=== PATIENT | male | born 1965 | race Caucasian/White ===

== ENCOUNTER → 2016-07-28 | Outpatient (CLI) | payer OTHER ==
[~2016-07-28] MED LIST: AMLO-114 PO; ASPI325T45 PO; ATOR-24 PO; FLUC100T4 PO; FURO-85 PO; HYG/25 PO; LEVO1TAB34 PO; LEVO500T19 PO; LISI-725 PO; METF1000 PO; METR-162 PO; MULT-506 PO; POTA1CAP2 PO; [UNRECOGNIZED DRUG - CODE] PO
--- NOTE | 2016-07-28 13:34 | DIAGNOSTIC IMAGING REPORT ---
LEFT FIRST TOE 3 VIEWS CLINICAL HISTORY: Osteomyelitis. FINDINGS: 3 views of the left first toe are correlated with radiograph of left foot dated 06/21/2016. The skeletal structures are osteopenic. There is extensive destructive change involving the first toe. There is fracture through the proximal shaft of the first proximal phalanx. There is fragmentation with extensive bony erosion and distracted fragments seen involving the distal shaft and head of the first proximal phalanx. Periostitis is seen along the shaft of the first proximal phalanx. Foci of bony erosion and lucency are also identified within the first distal phalanx. The first metatarsal appears spared. Arthritic change is noted the first metatarsophalangeal joint. Soft tissue edema is seen throughout the first toe and the imaged lateral forefoot. IMPRESSION: 1. Extensive destructive change typical in appearance for osteomyelitis involving the left first toe as detailed above. This represents a significant change from the 06/21/2016 examination. 2. There is fracture through the base of the first proximal phalanx. 3. Overlying soft tissue edema is consistent with cellulitis. Electronically signed by: José Miguel Kennedy M.D. 07/28/2016 1:32 PM Dictated Date/Time: 07/28/2016 1:29 PM
== END | disposition home or self-care (01) ==
LOC: C.RDSM 08:00
PROVIDERS: ATTEND Physical Medicine & Rehabilitation Sports Medicine
DX: M86.9 Osteomyelitis, unspecified (principal); R93.7 Abnormal findings on diagnostic imaging of other parts of musculoskeletal system; S92.412A Displaced fracture of proximal phalanx of left great toe, initial encounter for closed fracture; X58.XXXA Exposure to other specified factors, initial encounter; M79.9 Soft tissue disorder, unspecified

== ENCOUNTER → 2016-07-28 | Outpatient (CLI) | payer OTHER ==
[2016-07-28 15:36] LABS: HEMATOCRIT 37.2 % (42-52); MEAN CELL VOLUME 89.6 fL (80-100); MEAN CORPUSCULAR HEMOGLOBIN 30.6 pg (25-34); MEAN CORPUSCULAR HGB CONC 34.1 g/dl (32-36); MEAN PLATELET VOLUME 10.2 fL (7.4-10.4); PLATELET COUNT 212 K/uL (130-400); RED BLOOD COUNT 4.15 M/uL (4.7-6.1); WHITE BLOOD COUNT 7.78 K/uL (4.8-10.8)
[2016-07-28 16:14] LABS: BLOOD UREA NITROGEN 56 mg/dl (7-18); BUN/CREATININE RATIO 24.5 (10-20); GLUCOSE 97 mg/dl (70-99)
[2016-07-28 16:15] LABS: CALCIUM 9.5 mg/dl (8.5-10.1); CARBON DIOXIDE 21 mmol/L (21-32); CHLORIDE 109 mmol/L (98-107); POTASSIUM 4.9 mmol/L (3.5-5.1); SODIUM 141 mmol/L (136-145)
== END | disposition home or self-care (01) ==
LOC: C.CPL 14:46
PROVIDERS: ATTEND Physical Medicine & Rehabilitation Sports Medicine
DX: Z01.818 Encounter for other preprocedural examination (principal); M86.9 Osteomyelitis, unspecified

== ENCOUNTER → 2016-08-04 | Day surgery (SDC) | payer OTHER ==
[2016-07-28 11:00] VITALS: Ht 170.2 cm; Wt 127.3 kg
--- NOTE | 2016-08-01 09:26 | PAT Medication Instructions ---
Service Date Aug 01, 2016. Current Home Medication List Amlodipine (Norvasc), 10 MG PO QAM Aspirin (Aspirin), 325 MG PO QAM Atorvastatin (Lipitor), 40 MG PO QAM Chlorthalidone (Hygroton), 25 MG PO QAM Fluconazole (Diflucan), 100 MG PO QAM Furosemide (Lasix), 20 MG PO QAM Levofloxacin (Levaquin), 1 TAB PO QAM Lisinopril (Zestril), 20 MG PO QAM Metformin Hcl (Glucophage), 1,000 MG PO BID Metronidazole (Flagyl), 500 MG PO BID Multivitamin (Multivitamin), 1 TAB PO HS Potassium Chloride (Potassium Chloride Er), 10 MEQ PO QAM PRN for LEG CRAMPS Medication Instructions For Your Scheduled Surgery - To stop as of 08/02/16 per surgeon's instructions: Aspirin (Aspirin), 325 MG PO QAM - Hold the following medications 48 hours prior to surgery: Metformin Hcl (Glucophage), 1,000 MG PO BID - Hold the following medications the morning of surgery: Furosemide (Lasix), 20 MG PO QAM Lisinopril (Zestril), 20 MG PO QAM Potassium Chloride (Potassium Chloride Er), 10 MEQ PO QAM PRN for LEG CRAMPS Chlorthalidone (Hygroton), 25 MG PO QAM - Take the following medications the morning of surgery with a sip of water OTHERWISE NOTHING TO EAT OR DRINK AFTER MIDNIGHT: Amlodipine (Norvasc), 10 MG PO QAM Metronidazole (Flagyl), 500 MG PO BID Fluconazole (Diflucan), 100 MG PO QAM Levofloxacin (Levaquin), 1 TAB PO QAM Atorvastatin (Lipitor), 40 MG PO QAM - Take the following medications as scheduled the night before surgery: Multivitamin (Multivitamin), 1 TAB PO HS Metronidazole (Flagyl), 500 MG PO BID If you have any questions please call us at [phone] (Sabina Briones PA-C ) or [phone] or [phone]
[~2016-08-04] VITALS: Ht 170.2 cm; Wt 127.3 kg
[~2016-08-04] MED LIST changes: +ATROPINE SULFATE 0.1 MG/ML 5ML SYR IV PRN; +BUPIVACAINE 0.5 % 5 MG/1 ML MPF 30ML VIAL ONE; +CLINDAMYCIN PHOS 150 MG/ML 2 ML VIAL IV SCH; +EpHEDrine SULFATE INJ 50 MG/ML AMP IV PRN; +FENTANYL CITRATE INJ 50 MCG/1 ML 2 ML VIAL ONE; +LACTATED RINGER'S 1000ML 1,000 ML IV SCH; -LEVO1TAB34 PO; +LIDOCAINE HCL 2% 2 ML VIAL (20MG/ML) ONE; +LIDOCAINE HCL 2% LOCAL 20 ML VIAL ONE; +MIDAZOLAM HCL 1 MG/ML 2ML VIAL ONE; +ONDANSETRON INJ 2 MG/ML 2 ML VIAL IV PRN; +POVIDONE-IODINE OP SOLN 30 ML BTL ONE; +PROPOFOL IV EMULSION 10 MG/ML 20 ML VIAL IV ONE; +SODIUM CHLORIDE 0.9% 1000ML 1,000 ML IV SCH; -[UNRECOGNIZED DRUG - CODE] PO
--- NOTE | 2016-08-04 09:13 | History & Physical Bridge Note ---
H&P Re-Evaluation Bridge Note: I have examined the patient, reviewed the History & Physical and in the interval since the performance of the History & Physical I have noted the following changes of clinical significance: No changes noted
--- NOTE | 2016-08-04 09:15 | Discharge Instructions ---
Discharge Instructions Visit Reason for Visit: Left Great Toe Ulcer/Osteomyelitis Discharge Discharge Diagnosis / Problem: same Discharge Goals Goal(s): Decrease discomfort, Improve function Medications Stopped Medications Name(s): na Restart Stopped Medication(s): resume all meds per scripts Activity Recommendations Activity Limitations: as noted below Lifting Limitations: until after follow-up appointment Exercise/Sports Limitations: until after follow-up appointment May Resume Sexual Activity: when tolerated Shower/Bathe: keep incision dry Driving or Machine Use: no limitations Weightbearing Status: Left partial Anesthesia . Post Anesthesia Instructions: If you have had General Anesthesia or IV Sedation: * Do not drive today. * Resume driving when surgeon permits. * Do not make important decisions or sign legal documents today. * Call surgeon for: 1. Temperature elevations greater than 101 degrees F. 2. Uncontrollable pain. 3. Excessive bleeding. 4. Persistent nausea and vomiting. 5. Medication intolerance (nausea, vomiting or rash). * For nausea and vomiting use only clear liquids such as: tea, soda, bouillon until nausea subsides, then gradually increase diet as tolerated. * If you have any concerns or questions, call your surgeon's office. If physician is unavailable and it is an emergency, call 911 or go to the nearest emergency room. . Instructions / Follow-Up Instructions / Follow-Up DIET: * Resume previous diet. MEDICATIONS: * Please take your prescriptions as instructed at your pre-op appointment and/ or see medication discharge instructions listed above. * If concerns develop, call your physician's office at . SPECIAL CARE INSTRUCTIONS: * Ice/Elevate as instructed. * Keep dressing clean, dry, intact. * Your surgical extremity may be discolored due to prepping agents used on the skin. A bluish-green tint is a normal variant and should not cause alarm. Call your doctor at [phone] if: * Temperature above 101 degrees * Pain not relieved by pain medicine ordered * There is increased drainage or redness from any incision * You have any unanswered questions, problems or concerns. FOLLOW UP VISIT: * If not already scheduled, please call the office at to schedule a follow-up appointment. Diet Recommendations Recommended Home Diet: diabetes diet Procedures Procedures Performed: see op note Pending Studies Studies pending at discharge: yes List of pending studies: toe Medical Emergencies . Who to Call and When: Medical Emergencies: If at any time you feel your situation is an emergency, please call 911 immediately. . Non-Emergent Contact Non-Emergency issues call your: Specialist Call Non-Emergent contact if: temperature is above 101.5 . . "Provider Documentation" section prepared by Alan Marquis.
--- NOTE | 2016-08-04 10:14 | [facility] Post Operative Brief Note ---
Immediate Operative Summary Operative Date Aug 04, 2016. Pre-Operative Diagnosis Left Great Toe Ulcer/Osteomyelitis Post-Operative Diagnosis same Procedure(s) Performed Left Great Toe Amputation Surgeon Dr. Elin Marquis Shingler Surgeon(s) Rob Medina PA-C Estimated Blood Loss 50CC Findings osteomyelitis including base of proximal phalanx Fluids (cc crystalloids) 400cc Specimens A. Left Great Toe Drains none Anesthesia none Complication(s) None Disposition Recovery Room / PACU
[2016-08-04 10:20] VITALS: TEMP 36.4
--- NOTE | 2016-08-04 10:29 | OPERATIVE REPORT ---
DATE OF OPERATION: 08/04/2016 PREOPERATIVE DIAGNOSIS: Osteomyelitis, left great toe including the base of the proximal phalanx. POSTOPERATIVE DIAGNOSIS: Same. OPERATION PERFORMED: Great toe amputation through MTP joint with primary closure. SURGEON: Dr. Marquis. EFFICIENCY MINER BLASTING: Rob Medina PA-C. No resident or fellow available. PERIOPERATIVE SITUATION: Medically cleared diabetic with intractable drainage has failed conservative management. At this point in time his x-rays reveal destruction of the proximal phalanx with the fracture extending all the way up to within 3-4 mm of the base of the proximal phalanx. Options were discussed with him and the entire toe amputation was noted then to be a distinct possibility. OPERATION AND FINDINGS: OPERATION: The patient appropriately identified, site verified, consent verified, 900 mg clindamycin confirmed as being given No tourniquet was utilized or applied. The leg was prepped and draped in usual routine fashion. No anesthesia was utilized. It was completely neuropathic. Using a medial incision to get to the proximal phalanx subperiosteal dissection was then carried out. The proximal phalanx was then noted to be involved with osteomyelitis to within about 0.5 cm of the joint with a significant involvement of the dorsal surface as well. There was a fracture there. This was excised leaving just a small remnant of the volar half of the proximal phalanx. Due to the fact that this would probably create the wound problems this was excised as well. Minor bleeding points controlled with electrocautery. The wound was irrigated. The redundant skin was then trimmed into appropriate flaps, fish mouth type flaps and repaired primary closure, full thickness flaps with 3-0 nylon horizontal and simple mattress sutures with a tension free closure. Prior to closure the wound was irrigated with ophthalmic diluted Betadine and then saline and then appropriately closed and appropriately dressed and patient transferred to the holding area in satisfactory condition having tolerated the procedure well. Estimated blood loss 50 mL. Permanent pathology pending on the bone. Crystalloid 400 mL. No DVT prophylaxis required. Weightbearing to tolerance. I attest to the content of the Intraoperative Record and any orders documented therein. Any exceptio ns are noted below.
--- NOTE | 2016-08-04 10:37 | OPERATIVE REPORT ---
DATE OF OPERATION: 08/04/2016 PREOPERATIVE DIAGNOSIS: Left great toe ulcer with osteomyelitis of the proximal and distal phalanx. POSTOPERATIVE DIAGNOSIS: Left great toe same. PROCEDURE: Left great toe amputation. SURGEON: Dr. Marquis. FLAME BURNER: Rob Medina PA-C. HISTORY OF PRESENT ILLNESS: This 51-year-old white male presented to the office with complaints of a large ulcer in his left great toe. He had previously been diagnosis with osteomyelitis. He had tried conservative care measures in hopes of salvaging the toe, but found it was not working. His wound was not healing. He elected to proceed with surgical intervention in hopes of improving his outcome. The patient is a nondiabetic. OPERATION: The patient was taken to the operating room where he was given no anesthesia. He was desensate from his diabetic neuropathy. The patient was prepped and draped in the usual sterile fashion. Please see Dr. Marquis's operative report for specifics of the procedure. I was present for the entire case from initial patient positioning through final wound closure. Assistance was provided in tissue retraction, hemostasis, and final wound closure. The patient was taken to phase 2 recovery in satisfactory condition. I attest to the content of the Intraoperative Record and any orders documented therein. Any exceptio ns are noted below.
--- NOTE | 2016-08-04 10:53 | Anesthesia Progress Nt - [facility] ---
Anesthesia Post Op Note Date & Time Aug 04, 2016 at 10:53 Vital Signs Pain Intensity: 0 Vital Signs Past 12 Hours Date Time Temp Pulse Resp B/P Pulse Ox O2 Delivery O2 Flow Rate FiO2 08/04/16 10:20 36.4 84 14 104/71 98 Room Air 08/04/16 09:05 36.8 94 16 122/79 97 Room Air Notes Mental Status: alert / awake / arousable, participated in evaluation Pt Amnestic to Procedure: Yes Nausea / Vomiting: adequately controlled Pain: adequately controlled Airway Patency, RR, SpO2: stable & adequate BP & HR: stable & adequate Hydration State: stable & adequate Anesthetic Complications: no major complications apparent
[2016-08-04 11:13] VITALS: BP 106/73; PULSE 83; O2SAT 98
== END | disposition home or self-care (01) ==
LOC: X.SURG 08:48
PROVIDERS: ATTEND Physical Medicine & Rehabilitation Sports Medicine
DX: M86.9 Osteomyelitis, unspecified (principal); L97.529 Non-pressure chronic ulcer of other part of left foot with unspecified severity; E11.9 Type 2 diabetes mellitus without complications; I10 Essential (primary) hypertension; Z89.9 Acquired absence of limb, unspecified; E78.9 Disorder of lipoprotein metabolism, unspecified; Z86.73 Personal history of transient ischemic attack (TIA), and cerebral infarction without residual deficits; Z88.0 Allergy status to penicillin

== ENCOUNTER → 2016-08-29 | Outpatient (CLI) | payer OTHER ==
[~2016-08-29] MED LIST changes: -ATROPINE SULFATE 0.1 MG/ML 5ML SYR IV PRN; -BUPIVACAINE 0.5 % 5 MG/1 ML MPF 30ML VIAL ONE; -CLINDAMYCIN PHOS 150 MG/ML 2 ML VIAL IV SCH; -EpHEDrine SULFATE INJ 50 MG/ML AMP IV PRN; -FENTANYL CITRATE INJ 50 MCG/1 ML 2 ML VIAL ONE; -LACTATED RINGER'S 1000ML 1,000 ML IV SCH; -LIDOCAINE HCL 2% 2 ML VIAL (20MG/ML) ONE; -LIDOCAINE HCL 2% LOCAL 20 ML VIAL ONE; -METR-162 PO; -MIDAZOLAM HCL 1 MG/ML 2ML VIAL ONE; -ONDANSETRON INJ 2 MG/ML 2 ML VIAL IV PRN; -POVIDONE-IODINE OP SOLN 30 ML BTL ONE; -PROPOFOL IV EMULSION 10 MG/ML 20 ML VIAL IV ONE; -SODIUM CHLORIDE 0.9% 1000ML 1,000 ML IV SCH
--- NOTE | 2016-08-29 12:45 | DIAGNOSTIC IMAGING REPORT ---
LEFT FOOT 2 VIEWS CLINICAL HISTORY: DIABETES OSTEOMYELITIS osteomyelitis COMPARISON: 07/28/2016 DISCUSSION: Interval amputation of the proximal and distal phalanges of the great toe. Several tiny residual soft tissue ossific fragments as residual. Moderate soft tissue edema. No destructive bony process of the current time. Heel spur. Considerable soft tissue edematous change. IMPRESSION: 1. Interval amputation of the phalanges of the great toe. 2. No evidence for a current bony destructive process. 3. Considerable soft tissue edematous change. 4. Heel spur. Electronically signed by: Hemant Torres M.D. 08/29/2016 12:44 PM Dictated Date/Time: 08/29/2016 12:42 PM
--- NOTE | 2016-08-29 12:47 | DIAGNOSTIC IMAGING REPORT ---
RIGHT FOOT 2 VIEWS CLINICAL HISTORY: DIABETES, OSTEOMYELITIS Right edema COMPARISON: None. DISCUSSION: Evidence for prior amputation distal phalanx right great toe. Considerable degenerative change of the remaining osseous structures. No evidence for cardiac bony destructive process. Heel spur is present. Mild ossification Achilles tendon insertion. IMPRESSION: Moderate soft tissue edematous change throughout. 2. Operative changes consistent with resection distal phalanx great toe. 3. No imaging evidence for current osteomyelitis Electronically signed by: Hemant Torres M.D. 08/29/2016 12:45 PM Dictated Date/Time: 08/29/2016 12:44 PM
== END | disposition home or self-care (01) ==
LOC: C.RAD 12:09
PROVIDERS: ATTEND Internal Medicine Endocrinology, Diabetes & Metabolism
DX: E11.9 Type 2 diabetes mellitus without complications (principal); M86.9 Osteomyelitis, unspecified

== ENCOUNTER 2022-11-01 18:23 | Observation (INO) ==
[2022-11-01] MEDS ORDERED: ASPIRIN CHEW 324 MG PO STA (18:29)
[2022-11-01] MEDS ORDERED: NITROGLYCERIN SL 0.4 MG/TAB TAB SL PRN (18:29)
--- NOTE | 2022-11-01 18:29 | ED Triage Note ---
Date of Service November 01, 2022 History of Present Illness This patient was briefly evaluated while in triage. An abbreviated physical exam was performed. This patient is a 57-year-old Male who presents to the ED for evaluation of history of DM, lipids chest pain into left arm started 1600 today left arm numbness similar episode last week but wasnt seen Physical Exam GENERAL: ambulatory into triage in mild distress. CARDIOVASCULAR: RRR RESPIRATORY: CTA ABDOMEN: BS x 4. Nontender to palpation. Initial orders for labs and / or imaging were placed and patient was placed in the waiting area until a bed is available. Please see further documentation for the full ED course.
[2022-11-01 19:23] LABS: Albumin Globulin Ratio 1.3 (0.9-2); BUN Creatinine Ratio 22.5 (10-20); Bilirubin,Total 0.9 mg/dl (0.2-1.0); Calcium 9.4 mg/dl (8.6-10.3); Creatinine Clr Calc Pharmacy 42.4 ml/min; Est GFR (African American) 30.9 ml/min; Est GFR (Non-African American) 26.6 ml/min; Potassium 4.2 mmol/L (3.5-5.1)
[2022-11-01 19:28] LABS: Troponin I High Sensitivity 10.2 pg/ml (0-20)
[2022-11-01 19:47] LABS: Basophils # (auto) 0.03 K/uL (0-0.2); Basophils % (auto) 0.4 %; Eosinophils # (auto) 0.13 K/uL (0-0.50); Eosinophils % (auto) 1.9 %; Hematocrit (blood only) 39.4 % (42.0-52.0); Hemoglobin 13.3 g/dl (14.0-18.0); Immature Granulocytes # (auto) 0.01 K/uL (0.01-0.20); Immature Granulocytes % (auto) 0.1 %; Lymphocytes # (auto) 1.29 K/uL (1.2-3.4); Lymphocytes % (auto) 18.9 %; Mean Corpuscular Hemoglobin 33.1 pg (25.0-34.0); Mean Corpuscular Hgb Conc 33.8 g/dL (32.0-36.0); Mean Platelet Volume 9.9 fL (9.4-12.4); Monocytes # (auto) 0.52 K/uL (0.11-0.59); Monocytes % (auto) 7.6 %; Neutrophils # (auto) 4.86 K/uL (1.40-6.50); Neutrophils % (auto) 71.1 %; Platelet Count 209 K/uL (130-400); RDW Coefficient of Variation 13.2 % (11.5-14.5); RDW Standard Deviation 47.5 fL (36.4-46.3); Red Blood Count 4.02 M/uL (4.70-6.10); White Blood Count 6.84 K/ul (4.8-10.8)
[2022-11-01] MEDS ORDERED: FAMOTIDINE 20MG IV PUSH 20 MG/5 ML SYR IV STA (19:55)
[2022-11-01] MEDS ORDERED: ONDANSETRON INJ 2 MG/ML 2 ML VIAL IV STA (19:55)
[2022-11-01] MEDS ORDERED: MoRPHine SULFATE 10 MG/ML CARP/VIAL IV STA (19:55)
--- NOTE | 2022-11-01 19:58 | XRay Report ---
XR chest 1V portable CLINICAL HISTORY: Chest pain, nonspecific COMPARISON STUDY: Chest radiograph April 11, 2015. FINDINGS: Lung volumes are normal. Lungs are clear. There is no pneumothorax or pleural effusion. Car diac size is normal. Mediastinal contours are normal. There is no evidence for pulmonary edema. IMPRESSION: No acute cardiopulmonary findings. ACT 112: Negative or not required by law. Electronically signed by: Colton Ramsey M.D. 11/01/2022 7:56 PM
--- NOTE | 2022-11-01 20:01 | Emergency Department Note ---
History of Present Illness General Chief complaint: Chest Pain Stated complaint: CHEST PAIN, L HAND NUMB Time Seen by Provider: 11/01/22 19:24 History of Present Illness Patient is a 57-year-old male with past medical history significant for hypertension, dyslipidemia, obesity, diabetes complicated by neuropathy, who presents emergency department for evaluation of chest pain, radiating into the left arm. His symptoms started acutely at 1600 today, roughly 4 hours ago. He was driving home from work. It was sudden onset of very constant, aching pain in the lower sternal area that radiates across the left chest and into the left arm. It steadily escalated, to a 10/10. There was some associated nausea w ithout vomiting, but no lightheadedness, dizziness, shortness of breath, sweats or back pain. He did nothing for his symptoms and came to the emergency department for evaluation. He reports he had a similar episode of pain about a week ago, from night into Sunday morning, with associated nausea and vomiting. He was not seen by a provider at that time. Patient is just been placed in the exam room, and now states that he is feeling better, pain is gotten better on its own, the constant aching pain is gone and he now is only getting occasional sharp pains that he rates a 5/10. Home Medications Medication Instructions Recorded Confirmed Type aspirin 81 mg tablet,delayed 81 mg PO DAILY 08/17/21 11/01/22 History release (Adult Low Dose Aspirin) atorvastatin 40 mg tablet 40 mg PO DAILY 08/17/21 11/01/22 History furosemide 20 mg tablet 20 mg PO DAILY 08/17/21 11/01/22 History lisinopril 20 mg tablet 20 mg PO DAILY 08/17/21 11/01/22 History multivitamin 1 tab PO DAILY 08/17/21 11/01/22 History metformin 500 mg tablet 250 mg PO DAILY 01/10/22 11/01/22 History Allergies Allergy/AdvReac Type Severity Reaction Status Date / Time Penicillins Allergy Severe ANAPHYLAXIS Verified 11/01/22 22:30 sulfamethoxazole AdvReac Mild GI upset Verified 11/01/22 22:30 [From Bactrim] trimethoprim [From Bactrim] AdvReac Mild GI upset Verified 11/01/22 22:30 Past Med/Surg History Medical History CKD (chronic kidney disease), stage III Diabetes Diabetic peripheral neuropathy associated with type 2 diabetes mellitus Dyslipidemia Gall bladder disease History of diabetic ulcer of foot Hypertension Malignant Neoplasm of Skin Status post partial amputation of foot Tachycardia Transient ischemic attack Surgical History S/P carpal tunnel release Status post amputation of great toe Social History Smoking Status: Never smoker Tobacco Type: Smokeless Tobacco (Dip or Chew) Hx Alcohol Use: Yes Alcohol type: beer Alcohol Intake Frequency: 2-3 x/Week Alcohol Intake Frequency Comment: 6 pack every third day or so Hx Substance Use: No Preferred Language: Pashto Communication Ability: Effective Visual Impairment: No Limitations Hearing Ability: Normal Cigarette Machine Filler Required: No Beliefs That Will Affect Care: None marital status: Single Current Living Situation: Family Current Living Situation Comment: pt's mother lives with him current occupational status: employed 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, 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 Feels Safe at Home: Yes caffeine: Yes during the past year weight has: remained stable Review of Systems A total of 10 systems reviewed and were otherwise negative Physical Exam Vital Signs Vital Signs - 24 hr 11/01/22 18:27 11/01/22 19:30 11/01/22 19:30 Temperature 36.6 C Temperature Source Temporal Artery Scan Pulse Rate 108 H 93 H 91 H Pulse Rate [Right Finger] Pulse Rate from SpO2 Sensor 92 H Respiratory Rate 18 21 Respiratory Effort / Characteristics Non-Labored Spontaneous Respiratory Depth Normal Respiratory Pattern Regular Blood Pressure 212/83 H Blood Pressure [Right Arm] Blood Pressure Mean 126 Blood Pressure Mean [Right Arm] Blood Pressure Position [Right Arm] Pulse Oximetry 98 100 Oxygen Delivery Method Room Air Sepsis Recent Fever Within 48 Hours No Sepsis New/Unexplained Change in Mental Status No Sepsis Action Taken by Nursing No Action Required 11/01/22 19:45 11/01/22 22:15 11/01/22 20:00 Temperature Temperature Source Pulse Rate 81 Pulse Rate [Right Finger] 88 Pulse Rate from SpO2 Sensor 82 Respiratory Rate 18 17 Respiratory Effort / Characteristics Non-Labored Spontaneous Respiratory Depth Normal Respiratory Pattern Regular Blood Pressure Blood Pressure [Right Arm] 142/82 H Blood Pressure Mean Blood Pressure Mean [Right Arm] 102 Blood Pressure Position [Right Arm] Semi-fowlers Pulse Oximetry 98 97 100 Oxygen Delivery Method Room Air Room Air Sepsis Recent Fever Within 48 Hours Sepsis New/Unexplained Change in Mental Status Sepsis Action Taken by Nursing 11/01/22 20:30 11/01/22 21:00 Temperature Temperature Source Pulse Rate 85 83 Pulse Rate [Right Finger] Pulse Rate from SpO2 Sensor 85 85 Respiratory Rate 18 21 Respiratory Effort / Characteristics Respiratory Depth Respiratory Pattern Blood Pressure Blood Pressure [Right Arm] Blood Pressure Mean Blood Pressure Mean [Right Arm] Blood Pressure Position [Right Arm] Pulse Oximetry 100 97 Oxygen Delivery Method Sepsis Recent Fever Within 48 Hours Sepsis New/Unexplained Change in Mental Status Sepsis Action Taken by Nursing CONSTITUTIONAL: Patient is an overweight uncomfortable appearing 57-year-old male who is awake and alert and sitting upright on the gurney. EYES: Pupils equal, round, reactive to light and accommodation. EOMs intact without nystagmus. Sclera are anicteric. ENT: Tympanic membranes intact, with normal landmarks. External canals are clear. Oral and nasopharynx are clear. Mucous membranes are moist, no lesions, tongue and gums appear normal. CARDIOVASCULAR: Regular rate and rhythm. Peripheral pulses easy to palpable. RESPIRATORY: Breath sounds equal and clear to auscultation . GI: Bowel sounds are present. Abdomen is soft, obese, mildly tender to palpation across the upper abdomen in the epigastric and right upper quadrant. MUSCULOSKELETAL: Full range of motion of extremities x 4 with good strength. No cyanosis, edema, joint tenderness or swelling. No deformity. INTEGUMENTARY: No lesions or rash, normal skin turgor. NEUROLOGICAL: Alert, oriented, and cooperative. Cranial nerves, sensation and strength grossly intact. Pupils round, equal, and react to light, EOMs are full. LYMPH: No lymphadenopathy. Course Course The patient was seen and assessed as above. External medical records are reviewed. He was initially briefly evaluated by myself in triage, orders were placed, including aspirin and nitro. Patient was assessed fully when he was placed in exam room C-12. Nursing staff had administer the aspirin, but did not administer the nitroglycerin, and after I assessed him I asked the nurse to hold the nitroglycerin as his pain seemed to be more abdominal rather than chest related. IV lock was initiated and laboratory studies were collected. CBC with differential, CMP, lipase and troponin x2 were ordered. EKG, chest x-ray were also obtained. After I assessed the patient fully, he was ordered morphine, Zofran and Pepcid IV and gallbladder ultrasound was ordered. Laboratory studies per my interpretation note a normal white count at 6800, no left shift. Mild anemia, H&H 13.3 and 39.4, normal platelet count. No significant elevation of the electrolytes, BUN and creatinine elevated at 58 and 2.58 respectively. The patient does have a history of CKD, but there are no old labs available for review for comparison. He has a mild elevation of his AST, 148, ALT 128 and alk phos at 192. Initial troponin was not elevated. Lipase is within normal limits. EKG per my interpretation notes a normal sinus rhythm at 99 bpm. Chest x-ray per my interpretation is clear, without infiltrate or consolidation. Ultrasound per my interpretation notes cholelithiasis with gallbladder wall thickening, and borderline common bile duct dilatation. Findings are concerning for acute cholecystitis. Patient was reassessed. Laboratory studies, chest x-ray and ultrasound findings were reviewed with him. A second, 2-hour high-sensitivity troponin is unchanged significantly from the first. He is completely pain-free at this time. Treatment recommendations were reviewed and after review of the information above and other included data, I feel the patient requires admission/observation for further care and surgical evaluation. He was in agreement. I did review the patient with Dr. Martinez with general surgery, who recommended medical admission and MRCP, and surgical consultation. [facility] and [facility]. Administered Medications Sodium Chloride (Nss 1000ml) 1,000 mls @ 100 mls/hr IV .Q10H SUSI Stop: 12/02/22 00:32 Last Admin: 11/02/22 00:49 Dose: 100 mls/hr Documented By: SAMPSON Discontinued Medications Aspirin (Aspirin Chew 324 Mg) 324 mg PO NOW STA Stop: 11/01/22 18:30 Last Admin: 11/01/22 19:37 Dose: 324 mg Documented By: Famotidine (Pepcid 20mg Iv Push) 20 mg in 5 mls @ 2.5 mls/min IV NOW STA Stop: 11/01/22 19:56 Last Admin: 11/01/22 20:10 Dose: 2.5 mls/min Documented By: Sodium Chloride (Nss 1000ml) 1,000 mls @ 999 mls/hr IV .Q1H1M SUSI Stop: 11/01/22 23:23 Last Infusion: 11/02/22 00:35 Dose: 0 mls/hr Documented By: Admin: 11/01/22 23:22 Dose: 999 mls/hr Documented By: PRERNA Sodium Chloride (Nss 1000ml) 1,000 mls @ 250 mls/hr IV .Q4H SUSI Stop: 12/01/22 22:29 Last Admin: 11/02/22 00:35 Dose: Not Given Documented By: SAMPSON Morphine Sulfate (Morphine Sulfate 10 Mg/Ml Carp/Vial) 6 mg IV NOW STA Stop: 11/01/22 19:56 Last Admin: 11/01/22 20:09 Dose: 6 mg Documented By: Ondansetron HCl (Ondansetron Inj 2 Mg/Ml 2 Ml Vial) 4 mg IV NOW STA Stop: 11/01/22 19:56 Last Admin: 11/01/22 20:09 Dose: 4 mg Documented By: Medical Decision Making Differential Diagnosis Differential diagnoses included acute myocardial infarction, acute coronary syndrome, myocarditis, pericarditis, pulmonary embolism, pneumonia, pneumothorax, cardiomyopathy, congestive heart failure, anemia, GERD, gastritis, esophagitis, peptic ulcer disease, acute cholecystitis, pancreatitis, musculoskeletal pain, among others. Medical Records Attestation: I reviewed the patient's medical records. Home Medications Current Medication List: was personally reviewed by me Laboratory Data Attestation: I reviewed the patient's lab results. 11/01/22 18:35 11/01/22 18:35 Lab Results 11/01/22 11/01/22 11/01/22 Range/Units 18:35 18:35 18:35 WBC 6.84 (4.8-10.8) K/ul RBC 4.02 L (4.70-6.10) M/uL Hgb 13.3 L (14.0-18.0) g/dl Hct 39.4 L (42.0-52.0) % MCV 98.0 (80.0-100.0) fL MCH 33.1 (25.0-34.0) pg MCHC 33.8 (32.0-36.0) g/dL RDW Std Deviation 47.5 H (36.4-46.3) fL RDW Coeff of Delia 13.2 (11.5-14.5) % Plt Count 209 (130-400) K/uL MPV 9.9 (9.4-12.4) fL Immature Gran % (Auto) 0.1 % Neut % (Auto) 71.1 % Lymph % (Auto) 18.9 % [place] % (Auto) 7.6 % Eos % (Auto) 1.9 % Baso % (Auto) 0.4 % Neut # (Auto) 4.86 (1.40-6.50) K/uL Lymph # (Auto) 1.29 (1.2-3.4) K/uL [place] # (Auto) 0.52 (0.11-0.59) K/uL Eos # (Auto) 0.13 (0-0.50) K/uL Baso # (Auto) 0.03 (0-0.2) K/uL Immature Gran # (Auto) 0.01 (0.01-0.20) K/uL PT Cancelled INR Cancelled APTT Cancelled PTT Ratio Cancelled Sodium 137 (136-145) mmol/L Potassium 4.2 (3.5-5.1) mmol/L Chloride 102 (98-107) mmol/L Carbon Dioxide 28 (21-32) mmol/L Anion Gap 7 (3-11) BUN 58 H (6-23) mg/dl Creatinine 2.58 H (0.6-1.4) mg/dl Est Cr Clr Drug Dosing 42.4 ml/min Est GFR ( Amer) 30.9 ml/min Est GFR (Non-Af Amer) 26.6 ml/min BUN/Creatinine Ratio 22.5 H (10-20) Glucose 130 H (70-99(Fasting)) mg/dl Calcium 9.4 (8.6-10.3) mg/dl Total Bilirubin 0.9 (0.2-1.0) mg/dl AST 148 H (13-39) U/L ALT 124 H (7-52) U/L Alkaline Phosphatase 192 H (34-104) U/L Troponin I High Sens 10.2 (0-20) pg/ml Total Protein 7.0 (6.0-8.3) gm/dl Albumin 4.0 (3.4-5.0) gm/dl Globulin 3.0 (2.5-4.0) gm/dl Albumin/Globulin Ratio 1.3 (0.9-2) Lipase 75 (11-82) U/L SARS-CoV-2, RNA, NAAT (NEGATIVE) 11/01/22 11/01/22 11/01/22 Range/Units 20:18 22:01 23:18 WBC (4.8-10.8) K/ul RBC (4.70-6.10) M/uL Hgb (14.0-18.0) g/dl Hct (42.0-52.0) % MCV (80.0-100.0) fL MCH (25.0-34.0) pg MCHC (32.0-36.0) g/dL RDW Std Deviation (36.4-46.3) fL RDW Coeff of Delia (11.5-14.5) % Plt Count (130-400) K/uL MPV (9.4-12.4) fL Immature Gran % (Auto) % Neut % (Auto) % Lymph % (Auto) % [place] % (Auto) % Eos % (Auto) % Baso % (Auto) % Neut # (Auto) (1.40-6.50) K/uL Lymph # (Auto) (1.2-3.4) K/uL [place] # (Auto) (0.11-0.59) K/uL Eos # (Auto) (0-0.50) K/uL Baso # (Auto) (0-0.2) K/uL Immature Gran # (Auto) (0.01-0.20) K/uL PT 10.2 INR 0.9 APTT 29.2 PTT Ratio 1.0 Sodium (136-145) mmol/L Potassium (3.5-5.1) mmol/L Chloride (98-107) mmol/L Carbon Dioxide (21-32) mmol/L Anion Gap (3-11) BUN (6-23) mg/dl Creatinine (0.6-1.4) mg/dl Est Cr Clr Drug Dosing ml/min Est GFR ( Amer) ml/min Est GFR (Non-Af Amer) ml/min BUN/Creatinine Ratio (10-20) Glucose (70-99(Fasting)) mg/dl Calcium (8.6-10.3) mg/dl Total Bilirubin (0.2-1.0) mg/dl AST (13-39) U/L ALT (7-52) U/L Alkaline Phosphatase (34-104) U/L Troponin I High Sens 10.8 (0-20) pg/ml Total Protein (6.0-8.3) gm/dl Albumin (3.4-5.0) gm/dl Globulin (2.5-4.0) gm/dl Albumin/Globulin Ratio (0.9-2) Lipase (11-82) U/L SARS-CoV-2, RNA, NAAT NEGATIVE (NEGATIVE) Imaging Data Attestation: I personally reviewed and interpreted this imaging study as follows: Radiologist's Impression: Chest X-Ray 11/01/22 18:29 XR chest 1V portable CLINICAL HISTORY: Chest pain, nonspecific COMPARISON STUDY: Chest radiograph April 11, 2015. FINDINGS: Lung volumes are normal. Lungs are clear. There is no pneumothorax or pleural effusion. Cardiac size is normal. Mediastinal contours are normal. There is no evidence for pulmonary edema. IMPRESSION: No acute cardiopulmonary findings. ACT 112: Negative or not required by law. Electronically signed by: Colton Ramsey M.D. 11/01/2022 7:56 PM Gallbladder Ultrasound 11/01/22 19:55 Exam(s): US GALLBLADDER EXAM: US Abdomen Limited, Gallbladder CLINICAL HISTORY: Reason for exam: UPPER ABD PAIN. TECHNIQUE: Real-time ultrasound of the right upper quadrant with image documentation. COMPARISON: CT abdomen pelvis 04/11/15 FINDINGS: Gallbladder: Cholelithiasis and severe wall thickening at 9 mm, nonspecific, as the gallbladder is mild to moderately distended. Findings could reflect an acute cholecystitis in the appropriate clinical setting, though other entities including acute pancreatitis, hepatitis, CHF are also included in the differential. Common bile duct: CBD 4.7-6.6 mm, borderline prominent. Pancreas/Liver/Right kidney: Unremarkable as visualized. IMPRESSION: 1. Severe gallbladder wall thickening at 9 mm with cholelithiasis. 2. Findings could reflect acute cholecystitis in the appropriate clinical setting. 3. Borderline CBD dilatation 6.6 mm. Electronically signed by: Keeley Chairez M.D. 11/01/22 22:09 PM ECG Data Attestation: I personally reviewed and interpreted this ECG as follows: Indication: + chest pain Rate (beats per minute): 99 Rhythm: + normal sinus ECG [place]: + Normal ECG ST segments: + Normal ST segments Comparison ECG Date: from (July 2016) Change: no significant change MDM Narrative See ED course. Impression & Plan Acute calculous cholecystitis, Atypical chest pain, Transaminitis Discharge Plan Visit Data Chief Complaint: Chest Pain Stated Complaint: CHEST PAIN, L HAND NUMB ED Provider: Alyssa Justice ED Midlevel Provider: Rachana Pereira Discharge Problem: Acute calculous cholecystitis, Atypical chest pain, Transaminitis Patient Disposition: Admitted As Inpatient Discharge Instructions Interventions: ED Discharge Assessment Last Done: 11/02/22 00:20
[2022-11-01 20:58] LABS: INR 0.9 (0.9-1.1); Partial Thromboplastin Time 29.2 Seconds (21.0-31.0); Prothrombin Time 10.2 Seconds (9.0-12.0)
--- NOTE | 2022-11-01 22:10 | Ultrasound Report ---
Exam(s): US GALLBLADDER EXAM: US Abdomen Limited, Gallbladder CLINICAL HISTORY: Reason for exam: UPPER ABD PAIN. TECHNIQUE: Real-time ultrasound of the right upper quadrant with image documentation. COMPARISON: CT abdomen pelvis 04/11/15 FINDINGS: Gallbladder: Cholelithiasis and severe wall thickening at 9 mm, nonspecific, as the gallbladder is mild to moderately distended. Findings could reflect an acute cholecystitis in the appropriate clinical setting, though other entities including acute pancreatitis, hepatitis, CHF are also included in the differential. Common bile duct: CBD 4.7-6.6 mm, borderline prominent. Pancreas/Liver/Right kidney: Unremarkable as visualized. IMPRESSION: 1. Severe gallbladder wall thickening at 9 mm with cholelithiasis. 2. Findings could reflect acute cholecystitis in the appropriate clinical setting. 3. Borderline CBD dilatation 6.6 mm. Electronically signed by: Keeley Chairez M.D. 11/01/22 22:09 PM
[2022-11-01] MEDS ORDERED: SODIUM CHLORIDE 0.9% 1000ML 1,000 ML IV SCH ×2 (22:23→22:30)
[2022-11-02] MEDS ORDERED: GLUCOSE 40% GEL 15 GM TUBE PO PRN (00:33)
[2022-11-02] MEDS ORDERED: NITROGLYCERIN SL 0.4 MG/TAB TAB SL PRN (00:33)
[2022-11-02] MEDS ORDERED: ACETAMINOPHEN 325 MG TAB PO PRN (00:33)
[2022-11-02] MEDS ORDERED: CARBOHYDRATES FOR HYPOGLYCEMIA PO PRN (00:33)
[2022-11-02] MEDS ORDERED: POLYETHYLENE (MIRALAX) 17 GM PACK PO PRN (00:33)
[2022-11-02] MEDS ORDERED: GLUCAGON FOR INJ 1 MG VIAL SQ PRN (00:33)
[2022-11-02] MEDS ORDERED: DEXTROSE 50% 50 ML SYRINGE IV PRN (00:33)
[2022-11-02] MEDS ORDERED: ONDANSETRON INJ 2 MG/ML 2 ML VIAL IV PRN (00:33)
[2022-11-02] MEDS ORDERED: GLUCOSE 10 TAB/TUBE PO PRN (00:33)
[2022-11-02] MEDS ORDERED: LABETALOL HCL IV 5 MG/ML 20ML IV PRN (00:33)
[2022-11-02] MEDS: SODIUM CHLORIDE 0.9% 1000ML 1,000 ML IV SCH ×2 (00:49→13:41)
[2022-11-02] MEDS: metroNIDAZOLE 500 MG/100 ML BAG IV SCH ×3 (00:52→17:12)
[2022-11-02] MEDS: INSULIN ASPART PER UNIT CHARGE SC SCH ×5 (00:58→20:17)
[2022-11-02] MEDS: CIPROFLOXACIN / D5W 400 MG/200 ML BAG IV SCH ×2 (01:59→13:41)
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
[2022-11-02] MEDS: MoRPHine SULFATE 4 MG/ML 1 ML CARP\\VIAL IV PRN ×4 (03:52→23:01)
--- NOTE | 2022-11-02 04:38 | Magnetic Resonance Report ---
Exam(s): MRI MRCP EXAM: MR Abdomen Without Intravenous Contrast, MRCP Protocol CLINICAL HISTORY: Reason for exam: gall stones, transaminitis. TECHNIQUE: Multiplanar magnetic resonance images of the abdomen without intravenous contrast using MRCP protocol. Moderate breathing motion artifact. COMPARISON: Gallbladder ultrasound done earlier. CT abdomen pelvis 04/11/15 FINDINGS: Bile ducts: Borderline ductal dilation, CBD 7 mm. Distal most aspect of the CBD is not seen, with abrupt termination of the duct, nonspecific, may be within normal limits; cannot entirely rule out stricture or choledocholithiasis. Gallbladder: Cholelithiasis and diffuse gallbladder wall thickening, in keeping with ultrasound findings. Gallbladder is only mildly distended, an unusual finding an acute cholecystitis. Findings are nonspecific and could represent a combination of acute and chronic disease. Liver: No mass. Pancreas: No ductal dilation or peripancreatic edema. Spleen: Unremarkable. No splenomegaly. Adrenals: Unremarkable. No mass. Kidneys and ureters: No hydronephrosis. Stomach and bowel: Unremarkable. IMPRESSION: 1. Diffuse gallbladder wall thickening and cholelithiasis, stable. Gallbladder is not significantly distended and the findings are nonspecific, cannot rule out acute cholecystitis, possibly with a underlying chronic component. 2. Borderline CBD dilatation which abruptly terminates in the pancreatic head, nonspecific, may be within normal limits, though cannot rule out stricture or choledocholithiasis. Electronically signed by: Keeley Chairez M.D. 11/02/22 04:37 AM
[2022-11-02 06:40] LABS: Basophils # (auto) 0.02 K/uL (0-0.2); Basophils % (auto) 0.4 %; Eosinophils # (auto) 0.18 K/uL (0-0.50); Eosinophils % (auto) 3.4 %; Hematocrit (blood only) 34.4 % (42.0-52.0); Hemoglobin 11.5 g/dl (14.0-18.0); Immature Granulocytes # (auto) 0.01 K/uL (0.01-0.20); Immature Granulocytes % (auto) 0.2 %; Lymphocytes # (auto) 1.36 K/uL (1.2-3.4); Lymphocytes % (auto) 25.4 %; Mean Corpuscular Hemoglobin 33.6 pg (25.0-34.0); Mean Corpuscular Hgb Conc 33.4 g/dL (32.0-36.0); Mean Corpuscular Volume 100.6 fL (80.0-100.0); Mean Platelet Volume 9.9 fL (9.4-12.4); Monocytes # (auto) 0.62 K/uL (0.11-0.59); Monocytes % (auto) 11.6 %; Neutrophils # (auto) 3.16 K/uL (1.40-6.50); Platelet Count 185 K/uL (130-400); RDW Coefficient of Variation 13.3 % (11.5-14.5); RDW Standard Deviation 49.3 fL (36.4-46.3); Red Blood Count 3.42 M/uL (4.70-6.10); White Blood Count 5.35 K/ul (4.8-10.8)
[2022-11-02 06:44] LABS: Albumin Level 3.5 gm/dl (3.4-5.0); BUN Creatinine Ratio 21.4 (10-20); Bilirubin Direct 0.1 mg/dl (0-0.2); Bilirubin,Total 0.6 mg/dl (0.2-1.0); Calcium 8.8 mg/dl (8.6-10.3); Creatinine Clr Calc Pharmacy 44.7 ml/min; Est GFR (African American) 33.2 ml/min; Est GFR (Non-African American) 28.6 ml/min; Magnesium 2.1 mg/dl (1.7-2.4); Total Protein 6.2 gm/dl (6.0-8.3)
[2022-11-02 06:51] LABS: Troponin I High Sensitivity 8.7 pg/ml (0-20)
--- NOTE | 2022-11-02 07:34 | Communication Note ---
Date of Service: November 02, 2022 Held lisinopril for any procedures. Can restart as soon as possible. Thanks
--- NOTE | 2022-11-02 07:42 | Cardiology Consultation ---
Date of Consultation November 02, 2022 Assessment & Plan (1) Atypical chest pain: (2) Acute calculous cholecystitis: Plan IMPRESSION: -This is a 57-year-old male with a past medical history significant for uncontrolled diabetes with significant peripheral neuropathy and history of osteomyelitis status post amputation, hypertension, dyslipidemia, and chronic kidney disease stage IIIb. -Patient initially presented with atypical chest pain symptoms that appear to be more GI like in nature. Currently being worked up for acute cholecystitis by GI. -Cardiac workup thus far has been unremarkable including x2 Normal EKGs, negative HS troponin x3, and Echo without wall motion abnormalities. Symptoms are unlikely to be related to ACS. PLAN: -Recommend proceeding with GI/Gen surg workup as planned. No cardiac contraindications at this time. Case discussed with Dr. Coronado- no further recommendations from a cardiology standpoint. Will sign off at this time. Supervising Physician Co-Signing Physician Notes 57-year-old male with multiple cardiovascular risk factors who presented with symptoms atypical for angina. Patient personally examined. Currently exam co nsistent with marked abdominal pain right upper quadrant with Melara sign and rebound on palpation. Cardiac evaluations include negative enzymes negative normal EKG and normal overall systolic function on echocardiogram. Findings as above. Findings do not reflect acute coronary syndrome/myocardial ischemia Agree with GI and surgical evaluation Hold lisinopril and metformin Call with further questions or concerns History of Present Illness Reason for Consultation: Chest pain Requesting Physician: Yohannes thompson Attending Physician: Haresh Soto MD History of Present Illness This is a 57-year-old male with a past medical history significant for uncontrolled diabetes with significant peripheral neuropathy and history of osteomyelitis status post amputation, hypertension, dyslipidemia, and chronic kidney disease stage IIIb. He initially presented to [facility] emergency department due to a nonexertional severe epigastric discomfort. Symptoms have been presented since about July but over the last week has worsened. Symptoms were described as a constant aching lower sternal/epigastric discomfort that radiated to his left side and left arm. Chest discomfort symptoms are associated with nausea. x1 episode of vomiting last Sunday. Denied shortness of breath, lightheadedness or palpitations. States that he will take TUMS and start belching which improve symptoms. Vomiting also helps relieve his pain/gas/and abdominal distention. Denies any bloody bowel movements or emesis. Blood work: Anemia (hgb 13.3>>11.5) baseline between 13-14.0, renal disease with scr of 2.5>>2.4 (baseline around 2.3-2.4), AST/ALT elevated, HS trop negative x3 EKG: Normal sinus rhythm, 72 bpm without any concerning ST/T wave abnormalities. Chest x-ray: No acute finding Echo: LVEF 60-65%, moderate concentric LVH, Grade II diastolic dysfunction, no WMA, no significant valvular disease Ultrasound of the gallbladder: Findings concerning for acute cholecystitis. Gallbladder MRI: Diffuse gallbladder wall thickening and cholelithiasis, stable. Gallbladder is not significantly distended and the findings are nonspecific, cannot rule out acute cholecystitis, possibly with a underlying chronic component. Patient was admitted for possible surgical intervention regarding cholelithiasis/cholecystitis. Treated with IV fluids and antibiotics. Planning on scope tomorrow with GI. Gen surg consulted. Tele: NSR 80-90s -Does not follow with outpatient cardiology routinely- has seen Dr. Guerra once for preop risk assessment in 2016. Past medical history: Hypertension Dyslipidemia Sinus tachycardia Type 2 diabetes with significant diabetic neuropathy Osteomyelitis, history of partial amputation of the right great toe, 2013 and partial amputation of the left great toe, 07/2016 CKD stage IIIb with proteinuria, following with nephrology Persistent hyperkalemia Anemia of chronic disease Presumed LUCAS, following with sleep medicine History of alcoholism Family history of ischemic heart disease Allergies Allergy/AdvReac Type Severity Reaction Status Date / Time Penicillins Allergy Severe ANAPHYLAXIS Verified 11/01/22 22:30 sulfamethoxazole AdvReac Mild GI upset Verified 11/01/22 22:30 [From Bactrim] trimethoprim [From Bactrim] AdvReac Mild GI upset Verified 11/01/22 22:30 Home Medications Medication Instructions Recorded Confirmed Type aspirin 81 mg tablet,delayed 81 mg PO DAILY 08/17/21 11/01/22 History release (Adult Low Dose Aspirin) atorvastatin 40 mg tablet 40 mg PO DAILY 08/17/21 11/01/22 History furosemide 20 mg tablet 20 mg PO DAILY 08/17/21 11/01/22 History lisinopril 20 mg tablet 20 mg PO DAILY 08/17/21 11/01/22 History multivitamin 1 tab PO DAILY 08/17/21 11/01/22 History metformin 500 mg tablet 250 mg PO DAILY 01/10/22 11/01/22 History Patient History Medical History CKD (chronic kidney disease), stage III Diabetes Diabetic peripheral neuropathy associated with type 2 diabetes mellitus Dyslipidemia Gall bladder disease History of diabetic ulcer of foot Hypertension Malignant Neoplasm of Skin Status post partial amputation of foot Tachycardia Transient ischemic attack Surgical History S/P carpal tunnel release Status post amputation of great toe Social History Smoking Status: Never smoker Tobacco Type: Smokeless Tobacco (Dip or Chew) Hx Alcohol Use: Yes Alcohol type: beer Alcohol Intake Frequency: 2-3 x/Week A lcohol Intake Frequency Comment: 6 pack every third day or so Hx Substance Use: Yes Last Used Substance Other:: 2 months ago Preferred Language: [place] Communication Ability: Effective Visual Impairment: No Limitations Hearing Ability: Normal Top Spotter Required: No Beliefs That Will Affect Care: None marital status: Single Current Living Situation: Parent Current Living Situation Comment: Lives in a house together with his Mother current occupational status: employed current occupation: works doing [employer] work 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, 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 Feels Safe at Home: Yes Safety Concerns: Feels Safe At This Time caffeine: Yes during the past year weight has: remained stable Assistive Devices: None Review of Systems Review of Systems: All systems reviewed & are unremarkable except as noted in HPI & below Physical Exam Constitutional: WD/WN, vitals as above no acute distress Eyes: PERRL, conjunctivae normal, anicteric sclerae Neck: normal visual inspection and trachea midline Respiratory: normal respiratory effort, lungs clear to auscultation no cough Auscultation: + diminished lung sounds Cardiovascular: RRR, no murmur, no edema Heart Sounds: normal S1 and normal S2 Vessels: no JVD Extremities: + edema (Trace BLLE nonpitting edema, venous stasis changes. ) Gastrointestinal (Abdomen): Inspection/Auscultation: + abdomen distended Percussion/Palpation: + abdomen tender (RLQ + Melara sign) and + abdomen firm Skin: no rashes, warm and dry Psychiatric: A+Ox3, euthymic affect Results & Data Vital Signs (Past 12 Hours) Vital Signs Temp Pulse Pulse Resp BP BP Pulse Ox 11/02/22 03:06 36.4 C L 70 18 135/86 97 11/02/22 00:55 36.5 C 79 18 155/89 H 99 11/02/22 00:30 36.5 C 79 18 155/89 H 99 11/02/22 00:33 81 11/01/22 21:00 83 21 97 11/01/22 20:30 85 18 100 11/01/22 20:00 81 17 100 11/01/22 22:15 88 18 142/82 H 97 11/01/22 19:45 98 11/01/22 19:30 91 H 11/01/22 19:30 93 H 21 100 O2 Del Method 11/02/22 03:06 Room Air 11/02/22 00:55 Room Air 11/02/22 00:30 Room Air 11/02/22 00:33 11/01/22 21:00 11/01/22 20:30 11/01/22 20:00 11/01/22 22:15 Room Air 11/01/22 19:45 Room Air 11/01/22 19:30 11/01/22 19:30 Laboratory Results Cardiac Enzymes 11/01/22 11/01/22 11/02/22 Range/Units 18:35 22:01 05:29 AST 148 H 113 H (13-39) U/L Troponin I High Sens 10.2 10.8 8.7 (0-20) pg/ml Coagulation 11/01/22 11/01/22 Range/Units 18:35 20:18 PT Cancelled 10.2 APTT Cancelled 29.2 CBC 11/01/22 11/02/22 Range/Units 18:35 05:29 WBC 6.84 5.35 (4.8-10.8) K/ul RBC 4.02 L 3.42 L (4.70-6.10) M/uL Hgb 13.3 L 11.5 L (14.0-18.0) g/dl Hct 39.4 L 34.4 L (42.0-52.0) % Plt Count 209 185 (130-400) K/uL Neut # (Auto) 4.86 3.16 (1.40-6.50) K/uL Lymph # (Auto) 1.29 1.36 (1.2-3.4) K/uL [place] # (Auto) 0.52 0.62 H (0.11-0.59) K/uL Eos # (Auto) 0.13 0.18 (0-0.50) K/uL Baso # (Auto) 0.03 0.02 (0-0.2) K/uL Comprehensive Metabolic Panel 11/01/22 11/02/22 Range/Units 18:35 05:29 Sodium 137 141 (136-145) mmol/L Potassium 4.2 4.0 (3.5-5.1) mmol/L Chloride 102 105 (98-107) mmol/L Carbon Dioxide 28 29 (21-32) mmol/L BUN 58 H 52 H (6-23) mg/dl Creatinine 2.58 H 2.43 H (0.6-1.4) mg/dl Glucose 130 H 100 H (70-99(Fasting)) mg/dl Calcium 9.4 8.8 (8.6-10.3) mg/dl Direct Bilirubin 0.1 (0-0.2) mg/dl AST 148 H 113 H (13-39) U/L ALT 124 H 137 H (7-52) U/L Alkaline Phosphatase 192 H 183 H (34-104) U/L Total Protein 7.0 6.2 (6.0-8.3) gm/dl Albumin 4.0 3.5 (3.4-5.0) gm/dl Intake and Output 11/01/22 11/02/22 11/02/22 22:59 06:59 14:59 Intake Total 1400 / 1400 Balance 1400 / 1400 Intake: IV 1300 / 1300 Ciprofloxacin / D5w 400 mg In 200 / 200 200 ml @ 100 mls/hr IV Q12H [facility] Rx#:[id number] Sodium Chloride 0.9% 1000ML 1, 1000 / 1000 000 ml @ 999 mls/hr IV .Q1H1M [facility] Rx#:[id number] metroNIDAZOLE 500 mg In 100 ml 100 / 100 @ 100 mls/hr IV Q8H [facility]I Rx#: [id number] Oral 100 / 100 Other: Weight 135 kg 133.4 kg Weight Measurement Method Chair Scale Standing Scale
--- NOTE | 2022-11-02 08:32 | Surgery Consultation ---
Date of Consultation November 02, 2022 Assessment & Plan (1) Acute calculous cholecystitis: (2) Atypical chest pain: (3) Transaminitis: Plan 57 year-old male with uncontrolled diabetes, CKD, hypertension, hyperlipidema, tachycardia who presented to ED with mid abdominal pain with radiation to his left chest and down his left arm. Cardiac work-up negative. Gallbladder ultrasound showing diffuse gallbladder wall thickening measuring 9 mm with cholelithiasis and borderline dilation of CBD. MRCP showing gallbladder wall thickening however no gallbladder distention however there is dilation of CBD with abrupt termination at pancreatic head. T. bili normal, wbc normal. lfts slightly elevated. Plan: Given the MRCP findings and cannot rule out choledocholithiasis or stricture with elevated LFTS would recommend proceeding with EUS +/- ERCP with GI service prior to entertaining cholecystectomy. Discussed that his gallbladder is likely significantly inflamed given diffuse wall thickening on imaging and unfortunately given his age and uncontrolled diabetes this can mask severe gallbladder inflammation. As her is currently hemodynamically stable, no fever, and no leukocytosis, believe it would be best to cool the galllbadder off with IV abx and transition to oral antibiotics for total course of 2 weeks and proceed with elective cholecystectomy in 4-6 weeks to prevent surgical complications or risk of needing to convert to open cholecystectomy which will prolong his recovery and increasing his restriction postop. Will await results of EUS/ERCP tomorrow Continue IV antibiotics okay to have clears today and NPO after midnight Continue medical management Dr. Kemp has seen and examined patient and discussed above with patient. See addendum for further recommendations/plan. Supervising Physician Co-Signing Physician Notes I have seen and examined the patient personally and agree with the above assessment plan. He is set for EUS/ERCP tomorrow for the abnormal findings on MRCP. We will await the results of the procedure before making further recommendations. We will continue antibiotics for now. We will continue to follow. History of Present Illness Reason for Consultation: Cholecystitis Requesting Physician: Dr. Julian MD Attending Physician: Haresh Soto MD History of Present Illness Mr. Hernandez is a 57 year-old male with history of diabetes, CKD, diabetic peripheral neuropathy, hypertension, hyperlipidemia, diabetic foot ulcer , tachycardia, who presented to emergency room with complaint of upper mid abdominal pain that radiated to his left chest and arm with numbness. Thought that he was having a heart attack. This is in the setting of intermittent chronic right upper and mid abdominal pain for past 5- 6 months after eating with bloating, nausea, and vomiting. States he had RUQ abdominal pain last week with bloating and vomiting for 1.5 days and then pain resolved. Denies of any known fevers, chills, changes in bowel habits, diarrhea, constipation, blood in stools, black/tarry stools with the episodes of abdominal pain. No prior abdominal surgeries. History of bilateral toe amputations for infections. Currently states he is having RUQ abdominal pain. Somewhat resolved with the Morphine. No nausea or vomiting. Allergies Allergy/AdvReac Type Severity Reaction Status Date / Time Penicillins Allergy Severe ANAPHYLAXIS Verified 11/01/22 22:30 sulfamethoxazole AdvReac Mild GI upset Verified 11/01/22 22:30 [From Bactrim] trimethoprim [From Bactrim] AdvReac Mild GI upset Verified 11/01/22 22:30 Home Medications Medication Instructions Recorded Confirmed Type aspirin 81 mg tablet,delayed 81 mg PO DAILY 08/17/21 11/01/22 History release (Adult Low Dose Aspirin) atorvastatin 40 mg tablet 40 mg PO DAILY 08/17/21 11/01/22 History furosemide 20 mg tablet 20 mg PO DAILY 08/17/21 11/01/22 History lisinopril 20 mg tablet 20 mg PO DAILY 08/17/21 11/01/22 History multivitamin 1 tab PO DAILY 08/17/21 11/01/22 History metformin 500 mg tablet 250 mg PO DAILY 01/10/22 11/01/22 History Patient History Medical History CKD (chronic kidney disease), stage III Diabetes Diabetic peripheral neuropathy associated with type 2 diabetes mellitus Dyslipidemia Gall bladder disease History of diabetic ulcer of foot Hypertension Malignant Neoplasm of Skin Status post partial amputation of foot Tachycardia Transient ischemic attack Surgical History S/P carpal tunnel release Status post amputation of great toe Social History Smoking Status: Never smoker Tobacco Type: Smokeless Tobacco (Dip or Chew) Hx Alcohol Use: Yes Alcohol type: beer Alcohol Intake Frequency: 2-3 x/Week Alcohol Intake Frequency Comment: 6 pack every third day or so Hx Substance Use: Yes Last Used Substance Other:: 2 months ago Preferred Language: Bermudian Communication Ability: Effective Visual Impairment: No Limitations Hearing Ability: Normal Cath Lab Technologist Required: No Beliefs That Will Affect Care: None marital status: Single Current Living Situation: Parent Current Living Situation Comment: Lives in a house together with his Mother current occupational status: employed current occupation: works doing [employer] work 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, 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 Feels Safe at Home: Yes Safety Concerns: Feels Safe At This Time caffeine: Yes during the past year weight has: remained stable Assistive Devices: None Physical Exam 2 Constitutional: WD/WN, vitals as above + obese, cooperative and comfortable; no acute distress, not ill appearing, not combative and not lethargic Respiratory: normal respiratory effort, lungs clear to auscultation Cardiovascular: RRR, no murmur, no edema Gastrointestinal (Abdomen): Inspection/Auscultation: abdomen normal to inspection and + hypoactive bowel sounds; abdomen not distended and + abnormal bowel sounds Percussion/Palpation: + abdomen tender (RUQ), + guarding (RUQ) and abdomen soft; abdomen not rigid Skin: no rashes, warm and dry no jaundice Psychiatric: Orientation: alert and oriented x 3 Results & Data Vital Signs (Past 12 Hours) Vital Signs Temp Pulse Pulse Resp BP BP Pulse Ox 11/02/22 07:30 36.5 C 73 20 144/82 H 99 11/02/22 03:06 36.4 C L 70 18 135/86 97 11/02/22 00:55 36.5 C 79 18 155/89 H 99 11/02/22 00:30 36.5 C 79 18 155/89 H 99 11/02/22 00:33 81 11/01/22 21:00 83 21 97 11/01/22 22:15 88 18 142/82 H 97 O2 Del Method 11/02/22 07:30 Room Air 11/02/22 03:06 Room Air 11/02/22 00:55 Room Air 11/02/22 00:30 Room Air 11/02/22 00:33 11/01/22 21:00 11/01/22 22:15 Room Air Laboratory Results 04/27/23 04/27/23 04/27/23 Range/Units 06:01 05:29 05:29 WBC (4.8-10.8) K/ul RBC (4.70-6.10) M/uL Hgb (14.0-18.0) g/dl Hct (42.0-52.0) % MCV (80.0-100.0) fL MCH (25.0-34.0) pg MCHC (32.0-36.0) g/dL RDW Std Deviation (36.4-46.3) fL RDW Coeff of Delia (11.5-14.5) % Plt Count (130-400) K/uL MPV (9.4-12.4) fL Immature Gran % (Auto) % Neut % (Auto) % Lymph % (Auto) % Newberry % (Auto) % Eos % (Auto) % Baso % (Auto) % Neut # (Auto) (1.40-6.50) K/uL Lymph # (Auto) (1.2-3.4) K/uL Newberry # (Auto) (0.11-0.59) K/uL Eos # (Auto) (0-0.50) K/uL Baso # (Auto) (0-0.2) K/uL Immature Gran # (Auto) (0.01-0.20) K/uL PT INR APTT PTT Ratio Sodium 141 (136-145) mmol/L Potassium 4.0 (3.5-5.1) mmol/L Chloride 105 (98-107) mmol/L Carbon Dioxide 29 (21-32) mmol/L Anion Gap 7 (3-11) BUN 52 H (6-23) mg/dl Creatinine 2.43 H (0.6-1.4) mg/dl Est Cr Clr Drug Dosing 44.7 ml/min Est GFR ( Amer) 33.2 ml/min Est GFR (Non-Af Amer) 28.6 ml/min BUN/Creatinine Ratio 21.4 H (10-20) Glucose 100 H (70-99(Fasting)) mg/dl POC Glucose 95 (70-99) mg/dl Estimat Average Glucose Pending Hemoglobin A1c Pending Calcium 8.8 (8.6-10.3) mg/dl Magnesium 2.1 (1.7-2.4) mg/dl Total Bilirubin 0.6 (0.2-1.0) mg/dl Direct Bilirubin 0.1 (0-0.2) mg/dl AST 113 H (13-39) U/L ALT 137 H (7-52) U/L Alkaline Phosphatase 183 H (34-104) U/L Troponin I High Sens 8.7 (0-20) pg/ml Total Protein 6.2 (6.0-8.3) gm/dl Albumin 3.5 (3.4-5.0) gm/dl Globulin (2.5-4.0) gm/dl Albumin/Globulin Ratio (0.9-2) Lipase (11-82) U/L SARS-CoV-2, RNA, NAAT (NEGATIVE) 11/02/22 11/02/22 11/01/22 Range/Units 05:29 00:52 23:18 WBC 5.35 (4.8-10.8) K/ul RBC 3.42 L (4.70-6.10) M/uL Hgb 11.5 L (14.0-18.0) g/dl Hct 34.4 L (42.0-52.0) % MCV 100.6 H (80.0-100.0) fL MCH 33.6 (25.0-34.0) pg MCHC 33.4 (32.0-36.0) g/dL RDW Std Deviation 49.3 H (36.4-46.3) fL RDW Coeff of Delia 13.3 (11.5-14.5) % Plt Count 185 (130-400) K/uL MPV 9.9 (9.4-12.4) fL Immature Gran % (Auto) 0.2 % Neut % (Auto) 59.0 % Lymph % (Auto) 25.4 % Newberry % (Auto) 11.6 % Eos % (Auto) 3.4 % Baso % (Auto) 0.4 % Neut # (Auto) 3.16 (1.40-6.50) K/uL Lymph # (Auto) 1.36 (1.2-3.4) K/uL Newberry # (Auto) 0.62 H (0.11-0.59) K/uL Eos # (Auto) 0.18 (0-0.50) K/uL Baso # (Auto) 0.02 (0-0.2) K/uL Immature Gran # (Auto) 0.01 (0.01-0.20) K/uL PT INR APTT PTT Ratio Sodium (136-145) mmol/L Potassium (3.5-5.1) mmol/L Chloride (98-107) mmol/L Carbon Dioxide (21-32) mmol/L Anion Gap (3-11) BUN (6-23) mg/dl Creatinine (0.6-1.4) mg/dl Est Cr Clr Drug Dosing ml/min Est GFR ( Amer) ml/min Est GFR (Non-Af Amer) ml/min BUN/Creatinine Ratio (10-20) Glucose (70-99(Fasting)) mg/dl POC Glucose 104 H (70-99) mg/dl Estimat Average Glucose Hemoglobin A1c Calcium (8.6-10.3) mg/dl Magnesium (1.7-2.4) mg/dl Total Bilirubin (0.2-1.0) mg/dl Direct Bilirubin (0-0.2) mg/dl AST (13-39) U/L ALT (7-52) U/L Alkaline Phosphatase (34-104) U/L Troponin I High Sens (0-20) pg/ml Total Protein (6.0-8.3) gm/dl Albumin (3.4-5.0) gm/dl Globulin (2.5-4.0) gm/dl Albumin/Globulin Ratio (0.9-2) Lipase (11-82) U/L SARS-CoV-2, RNA, NAAT NEGATIVE (NEGATIVE) 11/01/22 11/01/22 11/01/22 Range/Units 22:01 20:18 18:35 WBC (4.8-10.8) K/ul RBC (4.70-6.10) M/uL Hgb (14.0-18.0) g/dl Hct (42.0-52.0) % MCV (80.0-100.0) fL MCH (25.0-34.0) pg MCHC (32.0-36.0) g/dL RDW Std Deviation (36.4-46.3) fL RDW Coeff of Delia (11.5-14.5) % Plt Count (130-400) K/uL MPV (9.4-12.4) fL Immature Gran % (Auto) % Neut % (Auto) % Lymph % (Auto) % Newberry % (Auto) % Eos % (Auto) % Baso % (Auto) % Neut # (Auto) (1.40-6.50) K/uL Lymph # (Auto) (1.2-3.4) K/uL Newberry # (Auto) (0.11-0.59) K/uL Eos # (Auto) (0-0.50) K/uL Baso # (Auto) (0-0.2) K/uL Immature Gran # (Auto) (0.01-0.20) K/uL PT 10.2 Cancelled INR 0.9 Cancelled APTT 29.2 Cancelled PTT Ratio 1.0 Cancelled Sodium (136-145) mmol/L Potassium (3.5-5.1) mmol/L Chloride (98-107) mmol/L Carbon Dioxide (21-32) mmol/L Anion Gap (3-11) BUN (6-23) mg/dl Creatinine (0.6-1.4) mg/dl Est Cr Clr Drug Dosing ml/min Est GFR ( Amer) ml/min Est GFR (Non-Af Amer) ml/min BUN/Creatinine Ratio (10-20) Glucose (70-99(Fasting)) mg/dl POC Glucose (70-99) mg/dl Estimat Average Glucose Hemoglobin A1c Calcium (8.6-10.3) mg/dl Magnesium (1.7-2.4) mg/dl Total Bilirubin (0.2-1.0) mg/dl Direct Bilirubin (0-0.2) mg/dl AST (13-39) U/L ALT (7-52) U/L Alkaline Phosphatase (34-104) U/L Troponin I High Sens 10.8 (0-20) pg/ml Total Protein (6.0-8.3) gm/dl Albumin (3.4-5.0) gm/dl Globulin (2.5-4.0) gm/dl Albumin/Globulin Ratio (0.9-2) Lipase (11-82) U/L SARS-CoV-2, RNA, NAAT (NEGATIVE) 11/01/22 11/01/22 Range/Units 18:35 18:35 WBC 6.84 (4.8-10.8) K/ul RBC 4.02 L (4.70-6.10) M/uL Hgb 13.3 L (14.0-18.0) g/dl Hct 39.4 L (42.0-52.0) % MCV 98.0 (80.0-100.0) fL MCH 33.1 (25.0-34.0) pg MCHC 33.8 (32.0-36.0) g/dL RDW Std Deviation 47.5 H (36.4-46.3) fL RDW Coeff of Delia 13.2 (11.5-14.5) % Plt Count 209 (130-400) K/uL MPV 9.9 (9.4-12.4) fL Immature Gran % (Auto) 0.1 % Neut % (Auto) 71.1 % Lymph % (Auto) 18.9 % Newberry % (Auto) 7.6 % Eos % (Auto) 1.9 % Baso % (Auto) 0.4 % Neut # (Auto) 4.86 (1.40-6.50) K/uL Lymph # (Auto) 1.29 (1.2-3.4) K/uL Newberry # (Auto) 0.52 (0.11-0.59) K/uL Eos # (Auto) 0.13 (0-0.50) K/uL Baso # (Auto) 0.03 (0-0.2) K/uL Immature Gran # (Auto) 0.01 (0.01-0.20) K/uL PT INR APTT PTT Ratio Sodium 137 (136-145) mmol/L Potassium 4.2 (3.5-5.1) mmol/L Chloride 102 (98-107) mmol/L Carbon Dioxide 28 (21-32) mmol/L Anion Gap 7 (3-11) BUN 58 H (6-23) mg/dl Creatinine 2.58 H (0.6-1.4) mg/dl Est Cr Clr Drug Dosing 42.4 ml/min Est GFR ( Amer) 30.9 ml/min Est GFR (Non-Af Amer) 26.6 ml/min BUN/Creatinine Ratio 22.5 H (10-20) Glucose 130 H (70-99(Fasting)) mg/dl POC Glucose (70-99) mg/dl Estimat Average Glucose Hemoglobin A1c Calcium 9.4 (8.6-10.3) mg/dl Magnesium (1.7-2.4) mg/dl Total Bilirubin 0.9 (0.2-1.0) mg/dl Direct Bilirubin (0-0.2) mg/dl AST 148 H (13-39) U/L ALT 124 H (7-52) U/L Alkaline Phosphatase 192 H (34-104) U/L Troponin I High Sens 10.2 (0-20) pg/ml Total Protein 7.0 (6.0-8.3) gm/dl Albumin 4.0 (3.4-5.0) gm/dl Globulin 3.0 (2.5-4.0) gm/dl Albumin/Globulin Ratio 1.3 (0.9-2) Lipase 75 (11-82) U/L SARS-CoV-2, RNA, NAAT (NEGATIVE) Diagnostic Findings Exam(s): US GALLBLADDER EXAM: US Abdomen Limited, Gallbladder CLINICAL HISTORY: Reason for exam: UPPER ABD PAIN. TECHNIQUE: Real-time ultrasound of the right upper quadrant with image documentation. COMPARISON: CT abdomen pelvis 04/11/15 FINDINGS: Gallbladder: Cholelithiasis and severe wall thickening at 9 mm, nonspecific, as the gallbladder is mild to moderately distended. Findings could reflect an acute cholecystitis in the appropriate clinical setting, though other entities including acute pancreatitis, hepatitis, CHF are also included in the differential. Common bile duct: CBD 4.7-6.6 mm, borderline prominent. Pancreas/Liver/Right kidney: Unremarkable as visualized. IMPRESSION: 1. Severe gallbladder wall thickening at 9 mm with cholelithiasis. 2. Findings could reflect acute cholecystitis in the appropriate clinical setting. 3. Borderline CBD dilatation 6.6 mm. Exam(s): MRI MRCP EXAM: MR Abdomen Without Intravenous Contrast, MRCP Protocol CLINICAL HISTORY: Reason for exam: gall stones, transaminitis. TECHNIQUE: Multiplanar magnetic resonance images of the abdomen without intravenous contrast using MRCP protocol. Moderate breathing motion artifact. COMPARISON: Gallbladder ultrasound done earlier. CT abdomen pelvis 04/11/15 FINDINGS: Bile ducts: Borderline ductal dilation, CBD 7 mm. Distal most aspect of the CBD is not seen, with abrupt termination of the duct, nonspecific, may be within normal limits; cannot entirely rule out stricture or choledocholithiasis. Gallbladder: Cholelithiasis and diffuse gallbladder wall thickening, in keeping with ultrasound findings. Gallbladder is only mildly distended, an unusual finding an acute cholecystitis. Findings are nonspecific and could represent a combination of acute and chronic disease. Liver: No mass. Pancreas: No ductal dilation or peripancreatic edema. Spleen: Unremarkable. No splenomegaly. Adrenals: Unremarkable. No mass. Kidneys and ureters: No hydronephrosis. Stomach and bowel: Unremarkable. IMPRESSION: 1. Diffuse gallbladder wall thickening and cholelithiasis, stable. Gallbladder is not significantly distended and the findings are nonspecific, cannot rule out acute cholecystitis, possibly with a underlying chronic component. 2. Borderline CBD dilatation which abruptly terminates in the pancreatic head, nonspecific, may be within normal limits, though cannot rule out stricture or choledocholithiasis. Electronically signed by: Keeley Chairez M.D. 11/02/22 04:37 AM
[2022-11-02] MEDS: ASPIRIN 81 MG ECTAB PO SCH (09:16)
[2022-11-02] MEDS: MULTIVITAMIN TAB PO SCH (09:16)
[2022-11-02] MEDS: ATORVASTATIN 40 MG TAB PO SCH (09:16)
--- NOTE | 2022-11-02 09:38 | Gastrointestinal Consultation ---
Date of Consultation November 02, 2022 Assessment & Plan (1) Transaminitis: 57 year old female with history of uncontrolled diabetes w/l neuropathy, osteomyelitis s/p amputation, hypertension, dyslipidemia and CKD-3 admitted with episodic RUQ pain, nausea/vomiting, imaging concerning for ?cholecystitis, CBD dilatation which abruptly terminates in the pancreatic head w/ elevated transaminases. Agree with general surgery consultation Agree with cardiology consultation NPO after Plan for EUS +/- ERCP Sunday Thank you for allowing us to participate in the care of this patient. Please call with any acute changes, questions or concerns. Please see addendum below with additional recommendation from my supervising physician. Supervising Physician Co-Signing Physician Notes Attg add: Pt admit with chest/abd pain, increased AST/ALT/AP, nl bili and lipase on admit, imaging shows GB wall thick + stones, borderline CBD dil, MRCP shows CBD cutoff. Plan EUS tomorrow. History of Present Illness Reason for Consultation: abd pain Requesting Physician: Brittany Attending Physician: Haresh Soto MD History of Present Illness 57 year old male with history of uncontrolled diabetes w/l neuropathy, osteomyelitis s/p amputation, hypertension, dyslipidemia and CKD-3 admitted with abd pain - GI asked to evaluate. Pt was seen and evaluated, chart reviewed. Suggests episodic RUQ pain with nausea/vomiting intermittent for at least 6 months. Yesterday, at onset of pain, more severe, prompting ED evaluation. Today he notes the pain is still present and he feels nauseated but as not vomited. Also explains a chest discomfort. No fever, chills. Takes ASA daily No other NSAIDs No AC reported Tbili 0.6 AST 113 ALT 137 ALKP 183 Lipase 75 MRCP 2022: . Diffuse gallbladder wall thickening and cholelithiasis, stable.Gallbladder is not significantly distended and the findings arenonspecific, cannot rule out acute cholecystitis, possibly with aunderlying chronic component. Borderline CBD dilatation which abruptly terminates in the pancreatichead, nonspecific, may be within normal limits, though cannot rule out stricture or choledocholithiasis. ABD US 2022: Severe gallbladder wall thickening at 9 mm with cholelithiasis. Findings could reflect acute cholecystitis in the appropriate clinical setting. Borderline CBD dilatation 6.6 mm. Allergies Allergy/AdvReac Type Severity Reaction Status Date / Time Penicillins Allergy Severe ANAPHYLAXIS Verified 11/01/22 22:30 sulfamethoxazole AdvReac Mild GI upset Verified 11/01/22 22:30 [From Bactrim] trimethoprim [From Bactrim] AdvReac Mild GI upset Verified 11/01/22 22:30 Home Medications Medication Instructions Recorded Confirmed Type aspirin 81 mg tablet,delayed 81 mg PO DAILY 08/17/21 11/01/22 History release (Adult Low Dose Aspirin) atorvastatin 40 mg tablet 40 mg PO DAILY 08/17/21 11/01/22 History furosemide 20 mg tablet 20 mg PO DAILY 08/17/21 11/01/22 History lisinopril 20 mg tablet 20 mg PO DAILY 08/17/21 11/01/22 History multivitamin 1 tab PO DAILY 08/17/21 11/01/22 History metformin 500 mg tablet 250 mg PO DAILY 01/10/22 11/01/22 History Patient History Medical History CKD (chronic kidney disease), stage III Diabetes Diabetic peripheral neuropathy associated with type 2 diabetes mellitus Dyslipidemia Gall bladder disease History of diabetic ulcer of foot Hypertension Malignant Neoplasm of Skin Status post partial amputation of foot Tachycardia Transient ischemic attack Surgical History S/P carpal tunnel release Status post amputation of great toe Social History Smoking Status: Never smoker Tobacco Type: Smokeless Tobacco (Dip or Chew) Hx Alcohol Use: Yes Alcohol type: beer Alcohol Intake Frequency: 2-3 x/Week Alcohol Intake Frequency Comment: 6 pack every third day or so Hx Substance Use: Yes Last Used Substance Other:: 2 months ago Preferred Language: Marshallese Communication Ability: Effective Visual Impairment: No Limitations Hearing Ability: Normal Stage Director Required: No Beliefs That Will Affect Care: None marital status: Single Current Living Situation: Parent Current Living Situation Comment: Lives in a house together with his Mother current occupational status: employed 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, 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 Feels Safe at Home: Yes Safety Concerns: Feels Safe At This Time caffeine: Yes during the past year weight has: remained stable Assistive Devices: None Review of Systems Review of Systems: All systems reviewed & are unremarkable except as noted in HPI & below Physical Exam Constitutional: WD/WN, vitals as above Respiratory: normal respiratory effort Cardiovascular: Rate/Rhythm: regular rate Gastrointestinal (Abdomen): Inspection/Auscultation: abdomen normal to inspection, + abdomen distended and normal bowel sounds Percussion/Palpation: + abdomen tender (RUQ) and abdomen soft; no guarding and abdomen not rigid Skin: no rashes, warm and dry Results & Data Vital Signs (Past 12 Hours) Vital Signs Temp Pulse Pulse Resp BP BP Pulse Ox 11/02/22 07:30 36.5 C 73 20 144/82 H 99 11/02/22 03:06 36.4 C L 70 18 135/86 97 11/02/22 00:55 36.5 C 79 18 155/89 H 99 11/02/22 00:30 36.5 C 79 18 155/89 H 99 11/02/22 00:33 81 11/01/22 22:15 88 18 142/82 H 97 O2 Del Method 11/02/22 07:30 Room Air 11/02/22 03:06 Room Air 11/02/22 00:55 Room Air 11/02/22 00:30 Room Air 11/02/22 00:33 11/01/22 22:15 Room Air Laboratory Results 11/02/22 11/02/22 11/02/22 Range/Units 06:01 05:29 05:29 WBC (4.8-10.8) K/ul RBC (4.70-6.10) M/uL Hgb (14.0-18.0) g/dl Hct (42.0-52.0) % MCV (80.0-100.0) fL MCH (25.0-34.0) pg MCHC (32.0-36.0) g/dL RDW Std Deviation (36.4-46.3) fL RDW Coeff of Delia (11.5-14.5) % Plt Count (130-400) K/uL MPV (9.4-12.4) fL Immature Gran % (Auto) % Neut % (Auto) % Lymph % (Auto) % [place] % (Auto) % Eos % (Auto) % Baso % (Auto) % Neut # (Auto) (1.40-6.50) K/uL Lymph # (Auto) (1.2-3.4) K/uL [place] # (Auto) (0.11-0.59) K/uL Eos # (Auto) (0-0.50) K/uL Baso # (Auto) (0-0.2) K/uL Immature Gran # (Auto) (0.01-0.20) K/uL PT INR APTT PTT Ratio Sodium 141 (136-145) mmol/L Potassium 4.0 (3.5-5.1) mmol/L Chloride 105 (98-107) mmol/L Carbon Dioxide 29 (21-32) mmol/L Anion Gap 7 (3-11) BUN 52 H (6-23) mg/dl Creatinine 2.43 H (0.6-1.4) mg/dl Est Cr Clr Drug Dosing 44.7 ml/min Est GFR ( Amer) 33.2 ml/min Est GFR (Non-Af Amer) 28.6 ml/min BUN/Creatinine Ratio 21.4 H (10-20) Glucose 100 H (70-99(Fasting)) mg/dl POC Glucose 95 (70-99) mg/dl Estimat Average Glucose Pending Hemoglobin A1c Pending Calcium 8.8 (8.6-10.3) mg/dl Magnesium 2.1 (1.7-2.4) mg/dl Total Bilirubin 0.6 (0.2-1.0) mg/dl Direct Bilirubin 0.1 (0-0.2) mg/dl AST 113 H (13-39) U/L ALT 137 H (7-52) U/L Alkaline Phosphatase 183 H (34-104) U/L Troponin I High Sens 8.7 (0-20) pg/ml Total Protein 6.2 (6.0-8.3) gm/dl Albumin 3.5 (3.4-5.0) gm/dl Globulin (2.5-4.0) gm/dl Albumin/Globulin Ratio (0.9-2) Lipase (11-82) U/L SARS-CoV-2, RNA, NAAT (NEGATIVE) 11/02/22 11/02/22 11/01/22 Range/Units 05:29 00:52 23:18 WBC 5.35 (4.8-10.8) K/ul RBC 3.42 L (4.70-6.10) M/uL Hgb 11.5 L (14.0-18.0) g/dl Hct 34.4 L (42.0-52.0) % MCV 100.6 H (80.0-100.0) fL MCH 33.6 (25.0-34.0) pg MCHC 33.4 (32.0-36.0) g/dL RDW Std Deviation 49.3 H (36.4-46.3) fL RDW Coeff of Delia 13.3 (11.5-14.5) % Plt Count 185 (130-400) K/uL MPV 9.9 (9.4-12.4) fL Immature Gran % (Auto) 0.2 % Neut % (Auto) 59.0 % Lymph % (Auto) 25.4 % [place] % (Auto) 11.6 % Eos % (Auto) 3.4 % Baso % (Auto) 0.4 % Neut # (Auto) 3.16 (1.40-6.50) K/uL Lymph # (Auto) 1.36 (1.2-3.4) K/uL [place] # (Auto) 0.62 H (0.11-0.59) K/uL Eos # (Auto) 0.18 (0-0.50) K/uL Baso # (Auto) 0.02 (0-0.2) K/uL Immature Gran # (Auto) 0.01 (0.01-0.20) K/uL PT INR APTT PTT Ratio Sodium (136-145) mmol/L Potassium (3.5-5.1) mmol/L Chloride (98-107) mmol/L Carbon Dioxide (21-32) mmol/L Anion Gap (3-11) BUN (6-23) mg/dl Creatinine (0.6-1.4) mg/dl Est Cr Clr Drug Dosing ml/min Est GFR ( Amer) ml/min Est GFR (Non-Af Amer) ml/min BUN/Creatinine Ratio (10-20) Glucose (70-99(Fasting)) mg/dl POC Glucose 104 H (70-99) mg/dl Estimat Average Glucose Hemoglobin A1c Calcium (8.6-10.3) mg/dl Magnesium (1.7-2.4) mg/dl Total Bilirubin (0.2-1.0) mg/dl Direct Bilirubin (0-0.2) mg/dl AST (13-39) U/L ALT (7-52) U/L Alkaline Phosphatase (34-104) U/L Troponin I High Sens (0-20) pg/ml Total Protein (6.0-8.3) gm/dl Albumin (3.4-5.0) gm/dl Globulin (2.5-4.0) gm/dl Albumin/Globulin Ratio (0.9-2) Lipase (11-82) U/L SARS-CoV-2, RNA, NAAT NEGATIVE (NEGATIVE) 11/01/22 11/01/22 11/01/22 Range/Units 22:01 20:18 18:35 WBC (4.8-10.8) K/ul RBC (4.70-6.10) M/uL Hgb (14.0-18.0) g/dl Hct (42.0-52.0) % MCV (80.0-100.0) fL MCH (25.0-34.0) pg MCHC (32.0-36.0) g/dL RDW Std Deviation (36.4-46.3) fL RDW Coeff of Delia (11.5-14.5) % Plt Count (130-400) K/uL MPV (9.4-12.4) fL Immature Gran % (Auto) % Neut % (Auto) % Lymph % (Auto) % [place] % (Auto) % Eos % (Auto) % Baso % (Auto) % Neut # (Auto) (1.40-6.50) K/uL Lymph # (Auto) (1.2-3.4) K/uL [place] # (Auto) (0.11-0.59) K/uL Eos # (Auto) (0-0.50) K/uL Baso # (Auto) (0-0.2) K/uL Immature Gran # (Auto) (0.01-0.20) K/uL PT 10.2 Cancelled INR 0.9 Cancelled APTT 29.2 Cancelled PTT Ratio 1.0 Cancelled Sodium (136-145) mmol/L Potassium (3.5-5.1) mmol/L Chloride (98-107) mmol/L Carbon Dioxide (21-32) mmol/L Anion Gap (3-11) BUN (6-23) mg/dl Creatinine (0.6-1.4) mg/dl Est Cr Clr Drug Dosing ml/min Est GFR ( Amer) ml/min Est GFR (Non-Af Amer) ml/min BUN/Creatinine Ratio (10-20) Glucose (70-99(Fasting)) mg/dl POC Glucose (70-99) mg/dl Estimat Average Glucose Hemoglobin A1c Calcium (8.6-10.3) mg/dl Magnesium (1.7-2.4) mg/dl Total Bilirubin (0.2-1.0) mg/dl Direct Bilirubin (0-0.2) mg/dl AST (13-39) U/L ALT (7-52) U/L Alkaline Phosphatase (34-104) U/L Troponin I High Sens 10.8 (0-20) pg/ml Total Protein (6.0-8.3) gm/dl Albumin (3.4-5.0) gm/dl Globulin (2.5-4.0) gm/dl Albumin/Globulin Ratio (0.9-2) Lipase (11-82) U/L SARS-CoV-2, RNA, NAAT (NEGATIVE) 11/01/22 11/01/22 Range/Units 18:35 18:35 WBC 6.84 (4.8-10.8) K/ul RBC 4.02 L (4.70-6.10) M/uL Hgb 13.3 L (14.0-18.0) g/dl Hct 39.4 L (42.0-52.0) % MCV 98.0 (80.0-100.0) fL MCH 33.1 (25.0-34.0) pg MCHC 33.8 (32.0-36.0) g/dL RDW Std Deviation 47.5 H (36.4-46.3) fL RDW Coeff of Delia 13.2 (11.5-14.5) % Plt Count 209 (130-400) K/uL MPV 9.9 (9.4-12.4) fL Immature Gran % (Auto) 0.1 % Neut % (Auto) 71.1 % Lymph % (Auto) 18.9 % [place] % (Auto) 7.6 % Eos % (Auto) 1.9 % Baso % (Auto) 0.4 % Neut # (Auto) 4.86 (1.40-6.50) K/uL Lymph # (Auto) 1.29 (1.2-3.4) K/uL [place] # (Auto) 0.52 (0.11-0.59) K/uL Eos # (Auto) 0.13 (0-0.50) K/uL Baso # (Auto) 0.03 (0-0.2) K/uL Immature Gran # (Auto) 0.01 (0.01-0.20) K/uL PT INR APTT PTT Ratio Sodium 137 (136-145) mmol/L Potassium 4.2 (3.5-5.1) mmol/L Chloride 102 (98-107) mmol/L Carbon Dioxide 28 (21-32) mmol/L Anion Gap 7 (3-11) BUN 58 H (6-23) mg/dl Creatinine 2.58 H (0.6-1.4) mg/dl Est Cr Clr Drug Dosing 42.4 ml/min Est GFR ( Amer) 30.9 ml/min Est GFR (Non-Af Amer) 26.6 ml/min BUN/Creatinine Ratio 22.5 H (10-20) Glucose 130 H (70-99(Fasting)) mg/dl POC Glucose (70-99) mg/dl Estimat Average Glucose Hemoglobin A1c Calcium 9.4 (8.6-10.3) mg/dl Magnesium (1.7-2.4) mg/dl Total Bilirubin 0.9 (0.2-1.0) mg/dl Direct Bilirubin (0-0.2) mg/dl AST 148 H (13-39) U/L ALT 124 H (7-52) U/L Alkaline Phosphatase 192 H (34-104) U/L Troponin I High Sens 10.2 (0-20) pg/ml Total Protein 7.0 (6.0-8.3) gm/dl Albumin 4.0 (3.4-5.0) gm/dl Globulin 3.0 (2.5-4.0) gm/dl Albumin/Globulin Ratio 1.3 (0.9-2) Lipase 75 (11-82) U/L SARS-CoV-2, RNA, NAAT (NEGATIVE)
[2022-11-02 11:29] LABS: Estimated Average Glucose 117 mg/dl; Hemoglobin A1C 5.7 % (4.5-5.6)
--- NOTE | 2022-11-02 18:20 | Hospitalist Progress Note ---
Date of Service November 02, 2022 Assessment & Plan (1) Acute calculous cholecystitis: (2) Atypical chest pain: Plan: This is a 57-year-old male who presents with chest pain and possible cholecystitis. 1. Atypical Chest pain: Pain started in the lower side of chest, radiating to left arm. Risk factors of diabetes, obesity, hypertension. Initial workup was negative for acute coronary syndrome. Echo obtained LV is normal in size. Moderate concentric LVH. LV wall motion is normal. EF 60 to 65%. Diastolic dysfunction, grade 2. Aortic valve sclerosis mild, without significant aortic valvular stenosis. Cardiology also consulted. Findings do not reflect acute coronary syndrome/myocardial ischemia Agree with GI and surgical evaluation Hold lisinopril and metformin 2. Acute cholecystitis, transaminitis: Pt had a similar episode with nausea, vomiting on last Sunday night. Gallbladder ultrasound is with gallstones, likely cholecystitis. ER talked to surgery and recommended MRCP. MRCP. 1. Diffuse gallbladder wall thickening and cholelithiasis, stable. Gallbladder is not significantly distended and the findings are nonspecific, cannot rule out acute cholecystitis, possibly with a underlying chronic component. 2. Borderline CBD dilatation which abruptly terminates in the pancreatic head, nonspecific, may be within normal limits, though cannot rule out stricture or choledocholithiasis. Empiric Cipro and Flagyl, IV fluids, IV antiemetics. Closely monitor in the hospital. GI and surgery consulted GI - plan for EUS/ERCP tmrw Surgery -discussed with surgeon, Dr. Wilson, he will await results of GI tomorrow, no surgery planned at this time. 3. Diabetes: The patient is currently on metformin 250 mg p.o. daily, which will be held. Insulin sliding scale. Follow the blood sugars, His HbA1c level recently was 5.5. Current A1c 5.7%. 4. Chronic kidney disease stage III: Presently with creatinine of 2.5, seems to be at baseline. Baseline creatinine 1.8-2.9. Follows with nephrology. Repeat Cr improved. 5. History of hypertension: Hold home lisinopril for now. Placed on IV labetalol p.r.n. Monitor the blood pressure. 6. Hyperlipidemia: Will continue statin for now. If LFTs are getting worse,will hold the statin. 7. Morbid obesity: Needs counseling. The patient says he has a scheduled sleep study coming January. 8. Lower extremity edema: On Lasix, which we will hold for now. Monitor for any volume overload. 9. History of alcoholism: The patient drinks total 12 beers on two days a week. Last drink was last Sunday. Advised on cutting down alcohol. DVT prophylaxis: SCDs for now. DISPOSITION:[facility] Admission and Anticipated Discharge Date Admission Date: November 02, 2022 Subjective Pt seen in follow up of acute cholecystitis, presented w/ chest pain and abd. pain Lying in bed in no acute distress Currently denies any chest Continues to have right upper quadrant abdominal discomfort Plan for EUS/ERCP by GI tomorrow Seen by surgery - plan to await results from GI procedure, cont. IV Abx Review of Systems Review of Systems: All systems reviewed & are unremarkable except as noted in Subjective Physical Exam Physical Exam: GENERAL: morbidly obese M, not in acute distress. HEENT: NC/AT. Pupils equal, round and reactive to light. Oral mucosa moist. NECK: No JVD, no neck masses. CARDIOVASCULAR: S1 and S2 heard. Regular rate and rhythm. No murmur, no gallop. RESPIRATORY: Normal AP diameter. No accessory muscle use. No wheezing or crackles. ABDOMEN: Soft, bowel sounds present. Mild right upper quadrant tenderness present. No guarding, no rigidity, no distention. NEURO: awake, alert, oriented. Answering appropriately. Speech fluent, no facial asymmetry, moves extremities EXTREMITIES: Lower extremity edema present with chronic skin changes. No erythema seen. Moves extremities. Results & Data Results & Data Vital Signs (Past 12 Hours) Vital Signs Temp Pulse Resp BP Pulse Ox O2 Del Method 11/02/22 15:20 36.5 C 72 18 140/82 93 Room Air 11/02/22 11:15 36.3 C L 75 18 147/89 H 97 Room Air 11/02/22 08:00 Room Air 11/02/22 07:30 36.5 C 73 20 144/82 H 99 Room Air Laboratory Results 11/02/22 11/02/22 11/02/22 Range/Units 16:45 16:17 11:23 WBC (4.8-10.8) K/ul RBC (4.70-6.10) M/uL Hgb (14.0-18.0) g/dl Hct (42.0-52.0) % MCV (80.0-100.0) fL MCH (25.0-34.0) pg MCHC (32.0-36.0) g/dL RDW Std Deviation (36.4-46.3) fL RDW Coeff of Delia (11.5-14.5) % Plt Count (130-400) K/uL MPV (9.4-12.4) fL Immature Gran % (Auto) % Neut % (Auto) % Lymph % (Auto) % Sevier % (Auto) % Eos % (Auto) % Baso % (Auto) % Neut # (Auto) (1.40-6.50) K/uL Lymph # (Auto) (1.2-3.4) K/uL Sevier # (Auto) (0.11-0.59) K/uL Eos # (Auto) (0-0.50) K/uL Baso # (Auto) (0-0.2) K/uL Immature Gran # (Auto) (0.01-0.20) K/uL PT INR APTT PTT Ratio Sodium (136-145) mmol/L Potassium (3.5-5.1) mmol/L Chloride (98-107) mmol/L Carbon Dioxide (21-32) mmol/L Anion Gap (3-11) BUN (6-23) mg/dl Creatinine (0.6-1.4) mg/dl Est Cr Clr Drug Dosing ml/min Est GFR ( Amer) ml/min Est GFR (Non-Af Amer) ml/min BUN/Creatinine Ratio (10-20) Glucose (70-99(Fasting)) mg/dl POC Glucose 115 H 94 (70-99) mg/dl Estimat Average Glucose mg/dl Hemoglobin A1c (4.5-5.6) % Calcium (8.6-10.3) mg/dl Magnesium (1.7-2.4) mg/dl Total Bilirubin (0.2-1.0) mg/dl Direct Bilirubin (0-0.2) mg/dl AST (13-39) U/L ALT (7-52) U/L Alkaline Phosphatase (34-104) U/L Troponin I High Sens 7.0 (0-20) pg/ml Total Protein (6.0-8.3) gm/dl Albumin (3.4-5.0) gm/dl Globulin (2.5-4.0) gm/dl Albumin/Globulin Ratio (0.9-2) Lipase (11-82) U/L SARS-CoV-2, RNA, NAAT (NEGATIVE) 11/02/22 11/02/22 11/02/22 Range/Units 10:58 06:01 05:29 WBC (4.8-10.8) K/ul RBC (4.70-6.10) M/uL Hgb (14.0-18.0) g/dl Hct (42.0-52.0) % MCV (80.0-100.0) fL MCH (25.0-34.0) pg MCHC (32.0-36.0) g/dL RDW Std Deviation (36.4-46.3) fL RDW Coeff of Delia (11.5-14.5) % Plt Count (130-400) K/uL MPV (9.4-12.4) fL Immature Gran % (Auto) % Neut % (Auto) % Lymph % (Auto) % Sevier % (Auto) % Eos % (Auto) % Baso % (Auto) % Neut # (Auto) (1.40-6.50) K/uL Lymph # (Auto) (1.2-3.4) K/uL Sevier # (Auto) (0.11-0.59) K/uL Eos # (Auto) (0-0.50) K/uL Baso # (Auto) (0-0.2) K/uL Immature Gran # (Auto) (0.01-0.20) K/uL PT INR APTT PTT Ratio Sodium (136-145) mmol/L Potassium (3.5-5.1) mmol/L Chloride (98-107) mmol/L Carbon Dioxide (21-32) mmol/L Anion Gap (3-11) BUN (6-23) mg/dl Creatinine (0.6-1.4) mg/dl Est Cr Clr Drug Dosing ml/min Est GFR ( Amer) ml/min Est GFR (Non-Af Amer) ml/min BUN/Creatinine Ratio (10-20) Glucose (70-99(Fasting)) mg/dl POC Glucose 95 (70-99) mg/dl Estimat Average Glucose 117 mg/dl Hemoglobin A1c 5.7 H (4.5-5.6) % Calcium (8.6-10.3) mg/dl Magnesium (1.7-2.4) mg/dl Total Bilirubin (0.2-1.0) mg/dl Direct Bilirubin (0-0.2) mg/dl AST (13-39) U/L ALT (7-52) U/L Alkaline Phosphatase (34-104) U/L Troponin I High Sens 7.7 (0-20) pg/ml Total Protein (6.0-8.3) gm/dl Albumin (3.4-5.0) gm/dl Globulin (2.5-4.0) gm/dl Albumin/Globulin Ratio (0.9-2) Lipase (11-82) U/L SARS-CoV-2, RNA, NAAT (NEGATIVE) 11/02/22 11/02/22 11/02/22 Range/Units 05:29 05:29 00:52 WBC 5.35 (4.8-10.8) K/ul RBC 3.42 L (4.70-6.10) M/uL Hgb 11.5 L (14.0-18.0) g/dl Hct 34.4 L (42.0-52.0) % MCV 100.6 H (80.0-100.0) fL MCH 33.6 (25.0-34.0) pg MCHC 33.4 (32.0-36.0) g/dL RDW Std Deviation 49.3 H (36.4-46.3) fL RDW Coeff of Delia 13.3 (11.5-14.5) % Plt Count 185 (130-400) K/uL MPV 9.9 (9.4-12.4) fL Immature Gran % (Auto) 0.2 % Neut % (Auto) 59.0 % Lymph % (Auto) 25.4 % Sevier % (Auto) 11.6 % Eos % (Auto) 3.4 % Baso % (Auto) 0.4 % Neut # (Auto) 3.16 (1.40-6.50) K/uL Lymph # (Auto) 1.36 (1.2-3.4) K/uL Sevier # (Auto) 0.62 H (0.11-0.59) K/uL Eos # (Auto) 0.18 (0-0.50) K/uL Baso # (Auto) 0.02 (0-0.2) K/uL Immature Gran # (Auto) 0.01 (0.01-0.20) K/uL PT INR APTT PTT Ratio Sodium 141 (136-145) mmol/L Potassium 4.0 (3.5-5.1) mmol/L Chloride 105 (98-107) mmol/L Carbon Dioxide 29 (21-32) mmol/L Anion Gap 7 (3-11) BUN 52 H (6-23) mg/dl Creatinine 2.43 H (0.6-1.4) mg/dl Est Cr Clr Drug Dosing 44.7 ml/min Est GFR ( Amer) 33.2 ml/min Est GFR (Non-Af Amer) 28.6 ml/min BUN/Creatinine Ratio 21.4 H (10-20) Glucose 100 H (70-99(Fasting)) mg/dl POC Glucose 104 H (70-99) mg/dl Estimat Average Glucose mg/dl Hemoglobin A1c (4.5-5.6) % Calcium 8.8 (8.6-10.3) mg/dl Magnesium 2.1 (1.7-2.4) mg/dl Total Bilirubin 0.6 (0.2-1.0) mg/dl Direct Bilirubin 0.1 (0-0.2) mg/dl AST 113 H (13-39) U/L ALT 137 H (7-52) U/L Alkaline Phosphatase 183 H (34-104) U/L Troponin I High Sens 8.7 (0-20) pg/ml Total Protein 6.2 (6.0-8.3) gm/dl Albumin 3.5 (3.4-5.0) gm/dl Globulin (2.5-4.0) gm/dl Albumin/Globulin Ratio (0.9-2) Lipase (11-82) U/L SARS-CoV-2, RNA, NAAT (NEGATIVE) 11/01/22 11/01/22 11/01/22 Range/Units 23:18 22:01 20:18 WBC (4.8-10.8) K/ul RBC (4.70-6.10) M/uL Hgb (14.0-18.0) g/dl Hct (42.0-52.0) % MCV (80.0-100.0) fL MCH (25.0-34.0) pg MCHC (32.0-36.0) g/dL RDW Std Deviation (36.4-46.3) fL RDW Coeff of Delia (11.5-14.5) % Plt Count (130-400) K/uL MPV (9.4-12.4) fL Immature Gran % (Auto) % Neut % (Auto) % Lymph % (Auto) % Sevier % (Auto) % Eos % (Auto) % Baso % (Auto) % Neut # (Auto) (1.40-6.50) K/uL Lymph # (Auto) (1.2-3.4) K/uL Sevier # (Auto) (0.11-0.59) K/uL Eos # (Auto) (0-0.50) K/uL Baso # (Auto) (0-0.2) K/uL Immature Gran # (Auto) (0.01-0.20) K/uL PT 10.2 INR 0.9 APTT 29.2 PTT Ratio 1.0 Sodium (136-145) mmol/L Potassium (3.5-5.1) mmol/L Chloride (98-107) mmol/L Carbon Dioxide (21-32) mmol/L Anion Gap (3-11) BUN (6-23) mg/dl Creatinine (0.6-1.4) mg/dl Est Cr Clr Drug Dosing ml/min Est GFR ( Amer) ml/min Est GFR (Non-Af Amer) ml/min BUN/Creatinine Ratio (10-20) Glucose (70-99(Fasting)) mg/dl POC Glucose (70-99) mg/dl Estimat Average Glucose mg/dl Hemoglobin A1c (4.5-5.6) % Calcium (8.6-10.3) mg/dl Magnesium (1.7-2.4) mg/dl Total Bilirubin (0.2-1.0) mg/dl Direct Bilirubin (0-0.2) mg/dl AST (13-39) U/L ALT (7-52) U/L Alkaline Phosphatase (34-104) U/L Troponin I High Sens 10.8 (0-20) pg/ml Total Protein (6.0-8.3) gm/dl Albumin (3.4-5.0) gm/dl Globulin (2.5-4.0) gm/dl Albumin/Globulin Ratio (0.9-2) Lipase (11-82) U/L SARS-CoV-2, RNA, NAAT NEGATIVE (NEGATIVE) 11/01/22 11/01/22 11/01/22 Range/Units 18:35 18:35 18:35 WBC 6.84 (4.8-10.8) K/ul RBC 4.02 L (4.70-6.10) M/uL Hgb 13.3 L (14.0-18.0) g/dl Hct 39.4 L (42.0-52.0) % MCV 98.0 (80.0-100.0) fL MCH 33.1 (25.0-34.0) pg MCHC 33.8 (32.0-36.0) g/dL RDW Std Deviation 47.5 H (36.4-46.3) fL RDW Coeff of Delia 13.2 (11.5-14.5) % Plt Count 209 (130-400) K/uL MPV 9.9 (9.4-12.4) fL Immature Gran % (Auto) 0.1 % Neut % (Auto) 71.1 % Lymph % (Auto) 18.9 % Sevier % (Auto) 7.6 % Eos % (Auto) 1.9 % Baso % (Auto) 0.4 % Neut # (Auto) 4.86 (1.40-6.50) K/uL Lymph # (Auto) 1.29 (1.2-3.4) K/uL Sevier # (Auto) 0.52 (0.11-0.59) K/uL Eos # (Auto) 0.13 (0-0.50) K/uL Baso # (Auto) 0.03 (0-0.2) K/uL Immature Gran # (Auto) 0.01 (0.01-0.20) K/uL PT Cancelled INR Cancelled APTT Cancelled PTT Ratio Cancelled Sodium 137 (136-145) mmol/L Potassium 4.2 (3.5-5.1) mmol/L Chloride 102 (98-107) mmol/L Carbon Dioxide 28 (21-32) mmol/L Anion Gap 7 (3-11) BUN 58 H (6-23) mg/dl Creatinine 2.58 H (0.6-1.4) mg/dl Est Cr Clr Drug Dosing 42.4 ml/min Est GFR ( Amer) 30.9 ml/min Est GFR (Non-Af Amer) 26.6 ml/min BUN/Creatinine Ratio 22.5 H (10-20) Glucose 130 H (70-99(Fasting)) mg/dl POC Glucose (70-99) mg/dl Estimat Average Glucose mg/dl Hemoglobin A1c (4.5-5.6) % Calcium 9.4 (8.6-10.3) mg/dl Magnesium (1.7-2.4) mg/dl Total Bilirubin 0.9 (0.2-1.0) mg/dl Direct Bilirubin (0-0.2) mg/dl AST 148 H (13-39) U/L ALT 124 H (7-52) U/L Alkaline Phosphatase 192 H (34-104) U/L Troponin I High Sens 10.2 (0-20) pg/ml Total Protein 7.0 (6.0-8.3) gm/dl Albumin 4.0 (3.4-5.0) gm/dl Globulin 3.0 (2.5-4.0) gm/dl Albumin/Globulin Ratio 1.3 (0.9-2) Lipase 75 (11-82) U/L SARS-CoV-2, RNA, NAAT (NEGATIVE) Medications Administered Current Inpatient Medications Acetaminophen (Acetaminophen 325 Mg Tab) 650 mg PO Q4H PRN PRN Reason: Pain or Fever Stop: 12/02/22 00:32 Aspirin (Aspirin 81 Mg Ectab) 81 mg PO DAILY SUSI Stop: 12/02/22 08:59 Last Admin: 11/02/22 09:16 Dose: 81 mg Atorvastatin Calcium (Atorvastatin 40 Mg Tab) 40 mg PO DAILY SUSI Stop: 12/02/22 08:59 Last Admin: 11/02/22 09:16 Dose: 40 mg Dextrose (Dextrose 50% 50 Ml Syringe) 25 - 50 ml IV UD PRN; Protocol PRN Reason: Hypoglycemia Protocol Stop: 12/02/22 00:32 Glucagon (Glucagon For Inj 1 Mg Vial) 1 mg SQ UD PRN; Protocol PRN Reason: Hypoglycemia Protocol Stop: 12/02/22 00:32 Glucose (Glucose 10 Tab/Tube) 4 - 8 tab PO UD PRN; Protocol PRN Reason: Hypoglycemia Treatment Stop: 12/02/22 00:32 Glucose (Glucose 40% Gel 15 Gm Tube) 15 - 30 gm PO UD PRN; Protocol PRN Reason: Hypoglycemia Protocol Stop: 12/02/22 00:32 Sodium Chloride (Nss 1000ml) 1,000 mls @ 80 mls/hr IV .[id number] SUSI Stop: 12/02/22 00:32 Last Admin: 11/02/22 13:41 Dose: 100 mls/hr Metronidazole (Flagyl) 500 mg in 100 mls @ 100 mls/hr IV Q8H SUSI Stop: 11/12/22 00:59 Last Infusion: 11/02/22 18:14 Dose: Infused Ciprofloxacin (Cipro / D5w) 400 mg in 200 mls @ 100 mls/hr IV Q12H SUSI; Protocol Stop: 11/12/22 00:32 Last Infusion: 11/02/22 15:45 Dose: Infused Insulin Aspart (Insulin Aspart Per Unit Charge) 0 units SC ACHS SUSI Stop: 12/02/22 16:29 Last Admin: 11/02/22 17:34 Dose: Not Given Labetalol HCl (Labetalol Hcl Iv 5 Mg/Ml 20ml) 10 mg IV Q4H PRN PRN Reason: Hypertension Stop: 12/02/22 00:32 Miscellaneous (Carbohydrates For Hypoglycemia ) 15 - 30 gm PO UD PRN PRN Reason: Hypoglycemia Protocol Stop: 12/02/22 00:32 Morphine Sulfate (Morphine Sulfate 4 Mg/Ml 1 Ml Carp\Vial) 3 mg IV Q4H PRN PRN Reason: Pain Stop: 11/16/22 00:32 Last Admin: 11/02/22 17:10 Dose: 3 mg Multivitamins (Multivitamin Tab) 1 tab PO DAILY SUSI Stop: 12/02/22 08:59 Last Admin: 11/02/22 09:16 Dose: 1 tab Nitroglycerin (Nitroglycerin Sl 0.4 Mg/Tab Tab) 0.4 mg SL UD PRN PRN Reason: Chest Pain Stop: 12/01/22 18:28 Nitroglycerin (Nitroglycerin Sl 0.4 Mg/Tab Tab) 0.4 mg SL UD PRN PRN Reason: Chest Pain Stop: 12/02/22 00:32 Ondansetron HCl (Ondansetron Inj 2 Mg/Ml 2 Ml Vial) 4 mg IV Q6H PRN PRN Reason: Nausea Stop: 12/02/22 00:32 Polyethylene Glycol (Polyethylene (Miralax) 17 Gm Pack) 17 gm PO DAILY PRN PRN Reason: Constipation Stop: 12/02/22 00:32
--- NOTE | 2022-11-02 22:44 | Electrocardiogram Report ---
Test Reason : Blood Pressure : / mmHG Vent. Rate : 099 BPM Atrial Rate : 099 BPM P-R Int : 152 ms QRS Dur : 086 ms QT Int : 334 ms P-R-T Axes : 068 005 058 degrees QTc Int : 428 ms Poor data quality, interpretation may be adversely affected Normal sinus rhythm Normal ECG When compared with ECG of 28-JUL-2016 15:05, Nonspecific T wave abnormality, improved in Lateral leads Confirmed by Braulio Rowland ([id number]) on 11/02/2022 10:43:59 PM Referred By: REFERRED SELF Confirmed By:Braulio Rowland
[2022-11-03] MEDS: metroNIDAZOLE 500 MG/100 ML BAG IV SCH ×3 (01:58→16:43)
[2022-11-03] MEDS: CIPROFLOXACIN / D5W 400 MG/200 ML BAG IV SCH ×2 (03:15→14:28)
--- NOTE | 2022-11-03 04:47 | Electrocardiogram Report ---
Test Reason : Blood Pressure : / mmHG Vent. Rate : 072 BPM Atrial Rate : 072 BPM P-R Int : 162 ms QRS Dur : 090 ms QT Int : 398 ms P-R-T Axes : 068 024 061 degrees QTc Int : 435 ms Normal sinus rhythm Normal ECG When compared with ECG of 01-NOV-2022 18:32, No significant change was found Confirmed by Braulio Rowland ([id number]) on 11/03/2022 4:47:32 AM Referred By: REFERRED SELF Confirmed By:Braulio Rowland
[2022-11-03] MEDS: SODIUM CHLORIDE 0.9% 1000ML 1,000 ML IV SCH (06:19)
[2022-11-03] MEDS: MoRPHine SULFATE 4 MG/ML 1 ML CARP\\VIAL IV PRN (07:36)
[2022-11-03 08:38] LABS: Hematocrit (blood only) 35.5 % (42.0-52.0); Hemoglobin 11.8 g/dl (14.0-18.0); Mean Corpuscular Hemoglobin 32.8 pg (25.0-34.0); Mean Corpuscular Hgb Conc 33.2 g/dL (32.0-36.0); Mean Corpuscular Volume 98.6 fL (80.0-100.0); Mean Platelet Volume 9.8 fL (9.4-12.4); Platelet Count 160 K/uL (130-400); RDW Coefficient of Variation 13.2 % (11.5-14.5); RDW Standard Deviation 47.8 fL (36.4-46.3); White Blood Count 4.48 K/ul (4.8-10.8)
[2022-11-03] MEDS: INSULIN ASPART PER UNIT CHARGE SC SCH ×4 (08:52→21:17)
[2022-11-03 09:00] LABS: Albumin Globulin Ratio 1.3 (0.9-2); Albumin Level 3.4 gm/dl (3.4-5.0); BUN Creatinine Ratio 20.3 (10-20); Bilirubin,Total 0.7 mg/dl (0.2-1.0); Calcium 8.9 mg/dl (8.6-10.3); Creatinine Clr Calc Pharmacy 55.2 ml/min; Est GFR (African American) 42.8 ml/min; Est GFR (Non-African American) 36.9 ml/min; Globulin 2.6 gm/dl (2.5-4.0); Magnesium 1.9 mg/dl (1.7-2.4); Phosphorus 3.2 mg/dl (2.5-4.9); Potassium 4.4 mmol/L (3.5-5.1)
[2022-11-03] MEDS: ASPIRIN 81 MG ECTAB PO SCH (09:01)
[2022-11-03] MEDS: ATORVASTATIN 40 MG TAB PO SCH (09:01)
[2022-11-03] MEDS: MULTIVITAMIN TAB PO SCH (09:01)
--- NOTE | 2022-11-03 09:45 | Gastroenterology Progress Note ---
Date of Service November 03, 2022 Assessment & Plan (1) Transaminitis: Plan: 57 year old male with history of uncontrolled diabetes w/l neuropathy, osteomyelitis s/p amputation, hypertension, dyslipidemia and CKD-3 admitted with episodic RUQ pain, nausea/vomiting, imaging concerning for ?cholecystitis, CBD dilatation which abruptly terminates in the pancreatic head w/ elevated transaminases. Still w RUQ abd pain today, LFTs similarly elevated. - Keep NPO - EUS eval +/- ERCP with Dr. Balbuena today - Surgery following - Continue Cipro/Flagyl - Symptomatic management Admission and Anticipated Discharge Date Admission Date: November 02, 2022 Supervising Physician Co-Signing Physician Notes I performed a history and physical examination of the patient today, including specifically on physical exam - soft abdomen. I have discussed the patient's management with the advanced practitioner. Please refer to the nurse practitioner's note for the documented findings and plan of care. EUS/ERCP Patient was explained in detail regarding risks, benefits, limitations and alternatives of the above endoscopic procedure. Risks of intravenous sedation used for procedure were also explained. Risks include, but not limited to perforation, bleeding, infection, respiratory distress, cardiac arrest and deat h. Patient is also aware about the possibility of missed lesion. Patient's questions were answered. The patient verbalized understanding the information and agreed to undergo the procedure. Subjective Pt reports still having RUQ abd pain. Denies n/v. Review of Systems Review of Systems: All systems reviewed & are unremarkable except as noted in HPI & below Physical Exam Constitutional: WD/WN, vitals as above well groomed, cooperative and comfortable Eyes: PERRL, conjunctivae normal, anicteric sclerae ENMT: external ear and nose normal, oropharynx normal Respiratory: normal respiratory effort, lungs clear to auscultation Cardiovascular: RRR, no murmur, no edema Gastrointestinal (Abdomen): RUQ TTP, abd soft, BS present Skin: no rashes, warm and dry no jaundice Neurologic: Motor/Sensory: no asterixis Psychiatric: A+Ox3, euthymic affect Lymphatic: no lymphedema Results & Data Vital Signs (Past 12 Hours) Vital Signs Temp Pulse Pulse Resp BP Pulse Ox O2 Del Method 11/03/22 08:01 36.5 C 76 20 160/72 H 100 Room Air 11/03/22 07:25 86 11/03/22 03:17 36.6 C 73 18 138/70 97 Room Air 11/02/22 22:09 77 11/02/22 22:48 36.6 C 71 18 163/88 H 100 Room Air
--- NOTE | 2022-11-03 10:18 | Hospitalist Progress Note ---
Date of Service November 03, 2022 Assessment & Plan (1) Acute calculous cholecystitis: (2) Atypical chest pain: Plan: This is a 57-year-old male who presents with chest pain and possible cholecystitis. 1. Atypical Chest pain: Pain started in the lower side of chest, radiating to left arm. Risk factors of diabetes, obesity, hypertension. Initial workup was negative for acute coronary syndrome. Echo obtained LV is normal in size. Moderate concentric LVH. LV wall motion is normal. EF 60 to 65%. Diastolic dysfunction, grade 2. Aortic valve sclerosis mild, without significant aortic valvular stenosis. Cardiology also consulted. Findings do not reflect acute coronary syndrome/myocardial ischemia Agree with GI and surgical evaluation Hold lisinopril and metformin 2. Acute cholecystitis, transaminitis: Pt had a similar episode with nausea, vomiting on last Sunday night. Gallbladder ultrasound is with gallstones, likely cholecystitis. ER talked to surgery and recommended MRCP. MRCP. 1. Diffuse gallbladder wall thickening and cholelithiasis, stable. Gallbladder is not significantly distended and the findings are nonspecific, cannot rule out acute cholecystitis, possibly with a underlying chronic component. 2. Borderline CBD dilatation which abruptly terminates in the pancreatic head, nonspecific, may be within normal limits, though cannot rule out stricture or choledocholithiasis. Empiric Cipro and Flagyl, IV fluids, IV antiemetics. Closely monitor in the hospital. GI and surgery consulted Surgery -discussed with surgeon, Dr. Wilson, no surgery planned at this time - cont. Abx for 2 weeks -> cholecystectomy as outpt GI - pt now s/p EUS/ERCP Choledocholithiasis was found. Complete removal was accomplished by biliary sphincterectomy and balloon extraction. Follow-up with surgery for cholecystectomy. 3. Diabetes: The patient is currently on metformin 250 mg p.o. daily, which will be held. Insulin sliding scale. Follow the blood sugars, His HbA1c level recently was 5.5. Current A1c 5.7%. 4. Chronic kidney disease stage III: Presently with creatinine of 2.5, seems to be at baseline. Baseline creatinine 1.8-2.9. Follows with nephrology. Repeat Cr improved. 5. History of hypertension: Hold home lisinopril for now. Placed on IV labetalol p.r.n. Monitor the blood pressure. 6. Hyperlipidemia: Will continue statin for now. 7. Morbid obesity: Needs counseling. The patient says he has a scheduled sleep study coming January. 8. Lower extremity edema: On Lasix, which we will hold for now. Monitor for any volume overload. 9. History of alcoholism: The patient drinks total 12 beers on two days a week. Last drink was last Sunday. Advised on cutting down alcohol. DVT prophylaxis: SCDs for now. DISPOSITION:med tele Admission and Anticipated Discharge Date Admission Date: November 02, 2022 Subjective Pt seen in follow up of acute cholecystitis, presented w/ chest pain and abd. pain Lying in bed in no acute distress s/p ERCP earlier today - found choledochol Reports he had RUQ pain this AM, but after the procedure his pain is currently resolved No fever, chills, chest pain, shortness of breath Per surgery - cont. Abx, plan for surgery as outpt Review of Systems Review of Systems: All systems reviewed & are unremarkable except as noted in Subjective Physical Exam Physical Exam: GENERAL: morbidly obese M, not in acute distress. HEENT: NC/AT. Pupils equal, round and reactive to light. Oral mucosa moist. NECK: No JVD, no neck masses. CARDIOVASCULAR: S1 and S2 heard. Regular rate and rhythm. No murmur, no gallop. RESPIRATORY: Normal AP diameter. No accessory muscle use. No wheezing or crackles. ABDOMEN: Soft, bowel sounds present. minimal right upper quadrant tenderness to palpation (improved). No guarding, no rigidity, no distention. NEURO: awake, alert, oriented. Answering appropriately. Speech fluent, no facial asymmetry, moves extremities EXTREMITIES: Lower extremity edema present with chronic skin changes. No erythema seen. Moves extremities. Results & Data Results & Data Vital Signs (Past 12 Hours) Vital Signs Temp Pulse Pulse Resp BP Pulse Ox O2 Del Method 11/03/22 08:01 36.5 C 76 20 160/72 H 100 Room Air 11/03/22 07:25 86 11/03/22 03:17 36.6 C 73 18 138/70 97 Room Air 11/02/22 22:48 36.6 C 71 18 163/88 H 100 Room Air Laboratory Results 11/03/22 11/03/22 11/03/22 Range/Units 08:25 07:42 07:42 WBC 4.48 L (4.8-10.8) K/ul RBC 3.60 L (4.70-6.10) M/uL Hgb 11.8 L (14.0-18.0) g/dl Hct 35.5 L (42.0-52.0) % MCV 98.6 (80.0-100.0) fL MCH 32.8 (25.0-34.0) pg MCHC 33.2 (32.0-36.0) g/dL RDW Std Deviation 47.8 H (36.4-46.3) fL RDW Coeff of Delia 13.2 (11.5-14.5) % Plt Count 160 (130-400) K/uL MPV 9.8 (9.4-12.4) fL Sodium 140 (136-145) mmol/L Potassium 4.4 (3.5-5.1) mmol/L Chloride 106 (98-107) mmol/L Carbon Dioxide 27 (21-32) mmol/L Anion Gap 7 (3-11) BUN 40 H (6-23) mg/dl Creatinine 1.97 H D (0.6-1.4) mg/dl Est Cr Clr Drug Dosing 55.2 ml/min Est GFR ( Amer) 42.8 ml/min Est GFR (Non-Af Amer) 36.9 ml/min BUN/Creatinine Ratio 20.3 H (10-20) Glucose 92 (70-99(Fasting)) mg/dl POC Glucose 92 (70-99) mg/dl Estimat Average Glucose mg/dl Hemoglobin A1c (4.5-5.6) % Calcium 8.9 (8.6-10.3) mg/dl Phosphorus 3.2 (2.5-4.9) mg/dl Magnesium 1.9 (1.7-2.4) mg/dl Total Bilirubin 0.7 (0.2-1.0) mg/dl AST 66 H (13-39) U/L ALT 111 H (7-52) U/L Alkaline Phosphatase 158 H (34-104) U/L Troponin I High Sens (0-20) pg/ml Total Protein 6.0 (6.0-8.3) gm/dl Albumin 3.4 (3.4-5.0) gm/dl Globulin 2.6 (2.5-4.0) gm/dl Albumin/Globulin Ratio 1.3 (0.9-2) 11/02/22 11/02/22 11/02/22 Range/Units 20:04 16:45 16:17 WBC (4.8-10.8) K/ul RBC (4.70-6.10) M/uL Hgb (14.0-18.0) g/dl Hct (42.0-52.0) % MCV (80.0-100.0) fL MCH (25.0-34.0) pg MCHC (32.0-36.0) g/dL RDW Std Deviation (36.4-46.3) fL RDW Coeff of Delai (11.5-14.5) % Plt Count (130-400) K/uL MPV (9.4-12.4) fL Sodium (136-145) mmol/L Potassium (3.5-5.1) mmol/L Chloride (98-107) mmol/L Carbon Dioxide (21-32) mmol/L Anion Gap (3-11) BUN (6-23) mg/dl Creatinine (0.6-1.4) mg/dl Est Cr Clr Drug Dosing ml/min Est GFR ( Amer) ml/min Est GFR (Non-Af Amer) ml/min BUN/Creatinine Ratio (10-20) Glucose (70-99(Fasting)) mg/dl POC Glucose 99 115 H (70-99) mg/dl Estimat Average Glucose mg/dl Hemoglobin A1c (4.5-5.6) % Calcium (8.6-10.3) mg/dl Phosphorus (2.5-4.9) mg/dl Magnesium (1.7-2.4) mg/dl Total Bilirubin (0.2-1.0) mg/dl AST (13-39) U/L ALT (7-52) U/L Alkaline Phosphatase (34-104) U/L Troponin I High Sens 7.0 (0-20) pg/ml Total Protein (6.0-8.3) gm/dl Albumin (3.4-5.0) gm/dl Globulin (2.5-4.0) gm/dl Albumin/Globulin Ratio (0.9-2) 11/02/22 11/02/22 11/02/22 Range/Units 11:23 10:58 05:29 WBC (4.8-10.8) K/ul RBC (4.70-6.10) M/uL Hgb (14.0-18.0) g/dl Hct (42.0-52.0) % MCV (80.0-100.0) fL MCH (25.0-34.0) pg MCHC (32.0-36.0) g/dL RDW Std Deviation (36.4-46.3) fL RDW Coeff of Delia (11.5-14.5) % Plt Count (130-400) K/uL MPV (9.4-12.4) fL Sodium (136-145) mmol/L Potassium (3.5-5.1) mmol/L Chloride (98-107) mmol/L Carbon Dioxide (21-32) mmol/L Anion Gap (3-11) BUN (6-23) mg/dl Creatinine (0.6-1.4) mg/dl Est Cr Clr Drug Dosing ml/min Est GFR ( Amer) ml/min Est GFR (Non-Af Amer) ml/min BUN/Creatinine Ratio (10-20) Glucose (70-99(Fasting)) mg/dl POC Glucose 94 (70-99) mg/dl Estimat Average Glucose 117 mg/dl Hemoglobin A1c 5.7 H (4.5-5.6) % Calcium (8.6-10.3) mg/dl Phosphorus (2.5-4.9) mg/dl Magnesium (1.7-2.4) mg/dl Total Bilirubin (0.2-1.0) mg/dl AST (13-39) U/L ALT (7-52) U/L Alkaline Phosphatase (34-104) U/L Troponin I High Sens 7.7 (0-20) pg/ml Total Protein (6.0-8.3) gm/dl Albumin (3.4-5.0) gm/dl Globulin (2.5-4.0) gm/dl Albumin/Globulin Ratio (0.9-2) Medications Administered Current Inpatient Medications Acetaminophen (Acetaminophen 325 Mg Tab) 650 mg PO Q4H PRN PRN Reason: Pain or Fever Stop: 12/02/22 00:32 Last Admin: 11/02/22 23:02 Dose: 650 mg Aspirin (Aspirin 81 Mg Ectab) 81 mg PO DAILY [facility] Stop: 12/02/22 08:59 Last Admin: 11/03/22 09:01 Dose: 81 mg Atorvastatin Calcium (Atorvastatin 40 Mg Tab) 40 mg PO DAILY [facility] Stop: 12/02/22 08:59 Last Admin: 11/03/22 09:01 Dose: 40 mg Dextrose (Dextrose 50% 50 Ml Syringe) 25 - 50 ml IV UD PRN; Protocol PRN Reason: Hypoglycemia Protocol Stop: 12/02/22 00:32 Glucagon (Glucagon For Inj 1 Mg Vial) 1 mg SQ UD PRN; Protocol PRN Reason: Hypoglycemia Protocol Stop: 12/02/22 00:32 Glucose (Glucose 10 Tab/Tube) 4 - 8 tab PO UD PRN; Protocol PRN Reason: Hypoglycemia Treatment Stop: 12/02/22 00:32 Glucose (Glucose 40% Gel 15 Gm Tube) 15 - 30 gm PO UD PRN; Protocol PRN Reason: Hypoglycemia Protocol Stop: 12/02/22 00:32 Sodium Chloride (Nss 1000ml) 1,000 mls @ 80 mls/hr IV .[id number] [facility] Stop: 12/02/22 00:32 Last Admin: 11/03/22 06:19 Dose: 80 mls/hr Metronidazole (Flagyl) 500 mg in 100 mls @ 100 mls/hr IV Q8H [facility] Stop: 11/12/22 00:59 Last Infusion: 11/03/22 10:01 Dose: Infused Ciprofloxacin (Cipro / D5w) 400 mg in 200 mls @ 100 mls/hr IV Q12H [facility]; Protocol Stop: 11/12/22 00:32 Last Infusion: 11/03/22 05:15 Dose: Infused Insulin Aspart (Insulin Aspart Per Unit Charge) 0 units SC ACHS [facility] Stop: 12/02/22 16:29 Last Admin: 11/03/22 08:52 Dose: Not Given Labetalol HCl (Labetalol Hcl Iv 5 Mg/Ml 20ml) 10 mg IV Q4H PRN PRN Reason: Hypertension Stop: 12/02/22 00:32 Miscellaneous (Carbohydrates For Hypoglycemia ) 15 - 30 gm PO UD PRN PRN Reason: Hypoglycemia Protocol Stop: 12/02/22 00:32 Morphine Sulfate (Morphine Sulfate 4 Mg/Ml 1 Ml Carp\Vial) 3 mg IV Q4H PRN PRN Reason: Pain Stop: 11/16/22 00:32 Last Admin: 11/03/22 07:36 Dose: 3 mg Multivitamins (Multivitamin Tab) 1 tab PO DAILY [facility] Stop: 12/02/22 08:59 Last Admin: 11/03/22 09:01 Dose: 1 tab Nitroglycerin (Nitroglycerin Sl 0.4 Mg/Tab Tab) 0.4 mg SL UD PRN PRN Reason: Chest Pain Stop: 12/01/22 18:28 Nitroglycerin (Nitroglycerin Sl 0.4 Mg/Tab Tab) 0.4 mg SL UD PRN PRN Reason: Chest Pain Stop: 12/02/22 00:32 Ondansetron HCl (Ondansetron Inj 2 Mg/Ml 2 Ml Vial) 4 mg IV Q6H PRN PRN Reason: Nausea Stop: 12/02/22 00:32 Polyethylene Glycol (Polyethylene (Miralax) 17 Gm Pack) 17 gm PO DAILY PRN PRN Reason: Constipation Stop: 12/02/22 00:32
--- NOTE | 2022-11-03 11:45 | Surgery Progress Note ---
Date of Service November 03, 2022 Assessment & Plan (1) Acute calculous cholecystitis: (2) Atypical chest pain: (3) Transaminitis: Plan 57 year-old male with uncontrolled diabetes, CKD, hypertension, hyperlipidema, tachycardia who presented to ED with mid abdominal pain with radiation to his left chest and down his left arm. Cardiac work-up negative. Gallbladder ultrasound showing diffuse gallbladder wall thickening measuring 9 mm with cholelithiasis and borderline dilation of CBD. MRCP showing gallbladder wall thickening however no gallbladder distention however there is dilation of CBD with abrupt termination at pancreatic head. T. bili normal, wbc normal. lfts slightly elevated. Plan: Given the MRCP findings and cannot rule out choledocholithiasis or stricture with elevated LFTS would recommend proceeding with EUS +/- ERCP with GI service prior to entertaining cholecystectomy. Discussed that his gallbladder is likely significantly inflamed given diffuse wall thickening on imaging and unfortunately given his age and uncontrolled diabetes this can mask severe gallbladder inflammation. As her is currently hemodynamically stable, no fever, and no leukocytosis, believe it would be best to cool the galllbadder off with IV abx and transition to oral antibiotics for total course of 2 weeks and proceed with elective cholecystectomy in 4-6 weeks to prevent surgical complications or risk of needing to convert to open cholecystectomy which will prolong his recovery and increasing his restriction postop. Will await results of EUS/ERCP today Continue IV antibiotics Continue medical management Admission and Anticipated Discharge Date Admission Date: November 02, 2022 Subjective Feeling well this morning. No nausea or vomiting. No fevers. Awaiting ERCP Physical Exam Gastrointestinal (Abdomen): Inspection/Auscultation: abdomen normal to inspection; abdomen not distended Percussion/Palpation: + abdomen tender (RUQ) and abdomen soft; abdomen not rigid Results & Data Vital Signs (Past 12 Hours) Vital Signs Temp Pulse Pulse Resp BP Pulse Ox O2 Del Method 11/03/22 11:23 36.5 C 82 20 149/69 H 100 Room Air 11/03/22 08:01 36.5 C 76 20 160/72 H 100 Room Air 11/03/22 07:25 86 11/03/22 03:17 36.6 C 73 18 138/70 97 Room Air
--- NOTE | 2022-11-03 11:54 | Anesthesiology Consultation ---
Date of Service November 03, 2022 Assessment & Plan Chart Review Chart Review: Acceptable Risk for Surgery Consults Requested none ASA ASA4 Proposed Anesthesia Anesthesia Type: General Risk / Benefits Reviewed With: PT / POA / Parent / Guardian, Accepts Plan and Informed Consent Obtained History Surgery Operation Date: 11/03/22 11:30 Proposed Procedures p Endoscopic Ultrasonography Upper - Shayan Balbuena MD Height/Weight Height: 5 ft 7 in Weight: 134 kg Allergies Allergy/AdvReac Type Severity Reaction Status Date / Time Penicillins Allergy Severe ANAPHYLAXIS Verified 11/01/22 22:30 sulfamethoxazole AdvReac Mild GI upset Verified 11/01/22 22:30 [From Bactrim] trimethoprim [From Bactrim] AdvReac Mild GI upset Verified 11/01/22 22:30 Medications Home Medications Medication Instructions Recorded Confirmed Last Taken aspirin 81 mg tablet,delayed 81 mg PO DAILY 08/17/21 11/01/22 Unknown release (Adult Low Dose Aspirin) atorvastatin 40 mg tablet 40 mg PO DAILY 08/17/21 11/01/22 Unknown furosemide 20 mg tablet 20 mg PO DAILY 08/17/21 11/01/22 Unknown lisinopril 20 mg tablet 20 mg PO DAILY 08/17/21 11/01/22 Unknown multivitamin 1 tab PO DAILY 08/17/21 11/01/22 Unknown metformin 500 mg tablet 250 mg PO DAILY 01/10/22 11/01/22 Unknown Active Medications Generic Name Dose Route Start Last Admin Trade Name Freq PRN Reason Stop Dose Admin Acetaminophen 650 mg 11/02/22 00:33 11/02/22 23:02 Acetaminophen 325 Mg Tab PO 12/02/22 00:32 650 mg Q4H PRN Administration Pain or Fever Aspirin 81 mg 11/02/22 09:00 11/03/22 09:01 Aspirin 81 Mg Ectab PO 12/02/22 08:59 81 mg DAILY [facility] Administration Atorvastatin Calcium 40 mg 11/02/22 09:00 11/03/22 09:01 Atorvastatin 40 Mg Tab PO 12/02/22 08:59 40 mg DAILY [facility] Administration Sodium Chloride 1,000 mls @ 80 mls/hr 11/02/22 00:33 11/03/22 06:19 Nss 1000ml IV 12/02/22 00:32 80 mls/hr .[id number] [facility] Administration Metronidazole 500 mg in 100 mls @ 100 mls/hr 11/02/22 01:00 11/03/22 10:01 Flagyl IV 11/12/22 00:59 Infused Q8H [facility] Infusion Ciprofloxacin 400 mg in 200 mls @ 100 mls/hr 11/02/22 02:00 11/03/22 05:15 Cipro / D5w IV 11/12/22 00:32 Infused Q12H [facility] Infusion Protocol Insulin Aspart 0 units 11/02/22 16:30 11/03/22 08:52 Insulin Aspart Per Unit Charge SC 12/02/22 16:29 Not Given ACHS [facility] Morphine Sulfate 3 mg 11/02/22 00:33 11/03/22 07:36 Morphine Sulfate 4 Mg/Ml 1 Ml Carp\\Vial IV 11/16/22 00:32 3 mg Q4H PRN Administration Pain Multivitamins 1 tab 11/02/22 09:00 11/03/22 09:01 Multivitamin Tab PO 12/02/22 08:59 1 tab DAILY [facility] Administration NPO Date Last Intake of Fluids: 11/03/22 Time Last Intake of Fluids: 09:00 Last Intake of Fluids Comment: sip with meds Date Last Intake of Solids: 11/01/22 Time Last Intake of Solids: 16:00 Past Medical History Medical History (Updated 11/03/22 @ 11:52 by Maryuri Syed DO) Atypical chest pain CKD (chronic kidney disease), stage III Diabetes Diabetic peripheral neuropathy associated with type 2 diabetes mellitus Dyslipidemia Gall bladder disease History of diabetic ulcer of foot Hypertension Malignant Neoplasm of Skin Morbid obesity Status post partial amputation of foot Tachycardia Transaminitis Transient ischemic attack tia 2011 no deficit Exercise / Class Metabolic Activity III < 4 Walking/Shop/Light housework Past Surgical History Surgical History S/P carpal tunnel release Status post amputation of great toe Past Anesthesia History No Hx of Anesthesia Complications and No Family Hx of Anesthesia Complications History of PONV No Hx of PONV and No Hx of Motion Sickness Social History Smoking Status: Never smoker Hx Alcohol Use: Yes Alcohol type: beer alcohol intake frequency: a few times a week Hx Substance Use: Yes substance use type: marijuana Last Used Substance Other:: 2 months ago Physical Exam Vital Signs Last Vital Signs Temp 36.7 C 11/03/22 11:54 Pulse 71 11/03/22 11:54 Resp 20 11/03/22 11:54 BP 174/76 H 11/03/22 11:54 Pulse Ox 100 11/03/22 11:54 O2 Del Method Room Air 11/03/22 11:54 Constitutional + morbidly obese ENMT Mouth: + dentition abnormality (mult missing teeth, some chipped); no TMJ abnormality Thyromental Distance: > or= 3.5 Finger Breadths Mallampati Class: III Neck normal visual inspection, trachea midline, + short neck and + thick neck; neck extension not limited Respiratory normal respiratory effort Auscultation: lungs clear to auscultation bilaterally Cardiovascular Rate/Rhythm: regular rate and regular rhythm Heart Sounds: no murmur Musculoskeletal Spine: normal cervical ROM Extremities: full ROM of extremities Neurologic moves all extremities Psychiatric Orientation: alert and oriented x 3 Testing Laboratory Results 11/03/22 07:42 11/03/22 07:42 PT 10.2 Seconds (9.0-12.0) 11/01/22 20:18 INR 0.9 (0.9-1.1) 11/01/22 20:18 APTT 29.2 Seconds (21.0-31.0) 11/01/22 20:18 Hemoglobin A1c 5.7 % (4.5-5.6) H 11/02/22 05:29 11/03/22 08:25 POC Glucose 92 Electrocardiogram Date: 11/03/22 Findings: + NSR @ (74) Echocardiogram Date: 11/02/22 EF: 60-65 LV Function: normal Other Findings: + LVH (moderate) and + diastolic dysfunction (gr 2) Valvular Disease: + no significant valvular disease (aortic sclerosis w/o sig stenosis) Other Testing cardiology note 11/02/22 "findings do not reflect ACS"
[2022-11-03] MEDS ORDERED: ONDANSETRON INJ 2 MG/ML 2 ML VIAL IV PRN (12:02)
[2022-11-03] MEDS ORDERED: fentaNYL citrate PF 100 MCG/2 ML VIAL IV PRN (12:02)
[2022-11-03] MEDS ORDERED: ePHEDrine sulfate 50 MG/ML AMP IV PRN (12:02)
[2022-11-03] MEDS ORDERED: MEPERIDINE HCL 25 MG/ML CARP/VIAL IV PRN (12:02)
[2022-11-03] MEDS ORDERED: ATROPINE SULFATE 0.1 MG/ML 10ML SYR IV PRN (12:02)
[2022-11-03] MEDS ORDERED: MoRPHine SULFATE 10 MG/ML CARP/VIAL IV PRN (12:02)
--- NOTE | 2022-11-03 12:28 | History & Physical Bridge Note ---
Date of Service November 03, 2022 History & Physical Bridge Note I have examined the patient, reviewed the History & Physical and in the interval since the performance of the History & Physical I have noted the following changes of clinical significance: no changes noted
[2022-11-03] MEDS ORDERED: fentaNYL citrate PF 100 MCG/2 ML VIAL ONE (12:48)
[2022-11-03] MEDS ORDERED: PROPOFOL IV EMULSION 10 MG/ML 20 ML VIAL IV ONE (12:52)
[2022-11-03] MEDS ORDERED: LIDOCAINE 2% MPF LOCAL 5 ML VIAL ONE (12:52)
[2022-11-03] MEDS ORDERED: ONDANSETRON INJ 2 MG/ML 2 ML VIAL ONE (12:52)
[2022-11-03] MEDS ORDERED: INDOMETHACIN 50 MG SUPP PR ONE (12:56)
[2022-11-03] MEDS ORDERED: PHENYLEPHRINE HCL 10 MG/ML VIAL ONE ×2 (12:56→13:13)
[2022-11-03] MEDS ORDERED: ePHEDrine sulfate 50 MG/ML SYR ONE (13:12)
[2022-11-03] MEDS ORDERED: ALBUTEROL HFA 8 GM INHALER INH ONE (13:14)
--- NOTE | 2022-11-03 13:16 | Operative Report ---
Post Operative Report Pre & Post Diagnosis Operation Date: 11/03/22 11:30 Pre-Op Diagnosis: Acute cholecystitis, transaminitis Post-Op Diagnosis: CBD stones. I identified the patient and participated in the time-out.: Yes Procedure Operation Date: 11/03/22 11:30 Actual Procedures p Esophagogastroduodenoscopy - Shayan Balbuena MD p Endoscopic Ultrasonography Upper - Shayan Balbuena MD s Endoscopic Retrograde Cholangiopancreato with balloon sweeps. - Shayan Balbuena MD Surgeon Shayan Balbuena MD Operational Intelligence Analyst None Estimated Blood Loss 0 Findings See Below (CBD stone removed) Specimens None Description of Procedure EUS/ERCP I attest to the content of the Intraoperative Record and any orders documented therein. Any exceptions are noted below.
--- NOTE | 2022-11-03 13:35 | GI REPORT ---
Patient Name: Wilmer Hernandez Procedure Date: 11/03/2022 12:21 PM Date of : 1965 Admit Type: Inpatient Age: 57 Gender: Male Attending MD: Shayan Balbuena MD, Procedure: Upper GI endoscopy Providers: Shayan Balbuena MD Referring MD: Haresh Soto Md Indications: Abdominal pain Medicines: Propofol per Anesthesia Complications: No immediate complications. Estimated Blood Loss: Estimated blood loss: none. Procedure: Pre-Anesthesia Assessment: - Prior to the procedure, a History and Physical was performed, and patient medications, allergies and sensitivities were reviewed. The patient's tolerance of previous anesthesia was reviewed. - The risks and benefits of the procedure and the sedation options and risks were discussed with the patient. All questions were answered and informed consent was obtained. - Patient identification and proposed procedure were verified prior to the procedure by the physician and the nurse. The procedure was verified in the procedure room. - Pre-procedure physical examination revealed no contraindications to sedation. After obtaining informed consent, the endoscope was passed under direct vision. Throughout the procedure, the patient's blood pressure, pulse, and oxygen saturations were monitored continuously. The Endoscope was introduced through the mouth, and advanced to the second part of duodenum. The upper GI endoscopy was accomplished without difficulty. The patient tolerated the procedure well. Findings: The examined esophagus was normal. The entire examined stomach was normal. The duodenal bulb and second portion of the duodenum were normal. Impression: - Normal esophagus. - Normal stomach. - Normal duodenal bulb and second portion of the duodenum. Recommendation: - Perform an upper endoscopic ultrasound (UEUS) today. Shayan Balbuena MD 11/03/2022 1:35:15 PM This report has been signed electronically. Note Initiated On: 11/03/2022 12:21 PM Number of Addenda: 0 I attest to the content of the Intraoperative Record and orders documented therein, exceptions below {[id number]}
--- NOTE | 2022-11-03 13:37 | GI REPORT ---
Patient Name: Wilmer Hernandez Procedure Date: 11/03/2022 12:22 PM Date of : 1965 Admit Type: Inpatient Age: 57 Gender: Male Attending MD: Shayan Balbuena MD, Procedure: Upper EUS Providers: Shayan Balbuena MD Referring MD: Haresh Soto Md Indications: Elevated liver enzymes, Suspected choledocholithiasis Medicines: Propofol per Anesthesia Complications: No immediate complications. Estimated Blood Loss: Estimated blood loss: none. Procedure: Pre-Anesthesia Assessment: - Prior to the procedure, a History and Physical was performed, and patient medications, allergies and sensitivities were reviewed. The patient's tolerance of previous anesthesia was reviewed. - The risks and benefits of the procedure and the sedation options and risks were discussed with the patient. All questions were answered and informed consent was obtained. - Patient identification and proposed procedure were verified prior to the procedure by the physician and the nurse. The procedure was verified in the procedure room. - Pre-procedure physical examination revealed no contraindications to sedation. After obtaining informed consent, the endoscope was passed under direct vision. Throughout the procedure, the patient's blood pressure, pulse, and oxygen saturations were monitored continuously. The Endosonoscope was introduced through the mouth, and advanced to the second part of duodenum. The upper EUS was accomplished without difficulty. The patient tolerated the procedure well. Findings: ENDOSONOGRAPHIC FINDING: : There was no sign of significant endosonographic abnormality in the ampulla. There was dilation in the common bile duct which measured up to 8 mm. One stone was visualized endosonographically in the common bile duct. It was hyperechoic and characterized by shadowing. Many stones were visualized endosonographically in the gallbladder. They were hyperechoic and characterized by shadowing. There was no sign of significant endosonographic abnormality in the visualized portion of the liver. Homogeneous parenchyma was identified. Pancreatic parenchymal abnormalities were noted in the entire pancreas. These consisted of diffuse echogenicity. Impression: - There was no sign of significant pathology in the ampulla. - There was dilation in the common bile duct which measured up to 8 mm. - One stone was visualized endosonographically in the common bile duct. - Many stones were visualized endosonographically in the gallbladder. - There was no evidence of significant pathology in the visualized portion of the liver. - Pancreatic parenchymal abnormalities consisting of diffuse echogenicity were noted in the entire pancreas. - No specimens collected. Recommendation: - Perform an ERCP today. Shayan Balbuena MD 11/03/2022 1:37:18 PM This report has been signed electronically. Note Initiated On: 11/03/2022 12:22 PM Number of Addenda: 0 I attest to the content of the Intraoperative Record and orders documented therein, exceptions below {[id number]}
--- NOTE | 2022-11-03 13:39 | GI REPORT ---
Patient Name: Wilmer Hernandez Procedure Date: 11/03/2022 12:23 PM Date of : 1965 Admit Type: Inpatient Age: 57 Gender: Male Attending MD: Shayan Balbuena MD, Procedure: ERCP Providers: Shayan Balbuena MD Referring MD: Haresh Soto Md Indications: For therapy of bile duct stone(s) Medicines: Propofol per Anesthesia Complications: No immediate complications. Estimated Blood Loss: Estimated blood loss: none. Procedure: Pre-Anesthesia Assessment: - Prior to the procedure, a History and Physical was performed, and patient medications, allergies and sensitivities were reviewed. The patient's tolerance of previous anesthesia was reviewed. - The risks and benefits of the procedure and the sedation options and risks were discussed with the patient. All questions were answered and informed consent was obtained. - Patient identification and proposed procedure were verified prior to the procedure by the physician and the nurse. The procedure was verified in the procedure room. - Pre-procedure physical examination revealed no contraindications to sedation. After obtaining informed consent, the scope was passed under direct vision. Throughout the procedure, the patient's blood pressure, pulse, and oxygen saturations were monitored continuously. The Duodenoscope was introduced through the mouth, and advanced to the duodenum and used to inject contrast into the bile duct. The ERCP was accomplished without difficulty. The patient tolerated the procedure well. Findings: The artists' model film was normal. The esophagus was successfully intubated under direct vision. The scope was advanced to a normal major papilla in the descending duodenum without detailed examination of the pharynx, larynx and associated structures, and upper GI tract. The upper GI tract was grossly normal. A 0.035 inch angled standard wire was passed into the biliary tree. The short-nosed traction sphincterotome was passed over the guidewire and the bile duct was then deeply cannulated. Contrast was injected. I personally interpreted the bile duct images. Ductal flow of contrast was adequate. Image quality was adequate. Contrast extended to the main bile duct. Opacification of the entire biliary tree except for the gallbladder was successful. The maximum diameter of the ducts was 9 mm. Biliary sphincterotomy was made with a monofilament traction (standard) sphincterotome using ERBE electrocautery. There was no post-sphincterotomy bleeding. The biliary tree was swept with a 12 mm balloon starting at the bifurcation. One stone was removed. No stones remained. Indomethacin 100 mg was given via suppository to decrease the risk of post-ERCP pancreatitis (PEP). Impression: - Choledocholithiasis was found. Complete removal was accomplished by biliary sphincterotomy and balloon extraction. Recommendation: - Return patient to [facility] for ongoing care. - Follow up with Surgery for cholecystectomy. Shayan Balbuena MD 11/03/2022 1:38:59 PM This report has been signed electronically. Note Initiated On: 11/03/2022 12:23 PM Number of Addenda: 0 I attest to the content of the Intraoperative Record and orders documented therein, exceptions below {[id number]}
--- NOTE | 2022-11-03 13:53 | Electrocardiogram Report ---
Test Reason : Blood Pressure : / mmHG Vent. Rate : 074 BPM Atrial Rate : 074 BPM P-R Int : 164 ms QRS Dur : 082 ms QT Int : 384 ms P-R-T Axes : 074 018 060 degrees QTc Int : 426 ms Normal sinus rhythm Normal ECG When compared with ECG of 02-NOV-2022 05:57, No significant change Confirmed by Jayy Walker ([id number]) on 11/03/2022 1:52:52 PM Referred By: REFERRED SELF Confirmed By:Jayy Walker
--- NOTE | 2022-11-03 13:54 | Fluoroscopy Report ---
INTRAOPERATIVE RADIOGRAPHS CLINICAL HISTORY: ERCP Fluoro time: 54 seconds Ka,r: 48.68 mGy FINDINGS: 9 spot fluoroscopic views of the right upper quadrant from an ERCP procedure are correlated with MRCP dated 11/02/2022. A catheter is advanced into the common bile duct. The common bile duct ap pears dilated. A balloon sweep of the common duct is performed. No filling defects are seen on the fi nal images. No intrahepatic biliary duct dilatation is identified. IMPRESSION: Intraoperative ERCP images as above. See operative report for detailed findings. Electronically signed by: José Miguel Kennedy M.D. 11/03/2022 1:53 PM
--- NOTE | 2022-11-03 13:59 | Anesthesiology Progress Note ---
Date of Service November 03, 2022 Anesthesia Post Procedure Vital Signs Vital Signs: Temp Pulse Pulse Pulse Resp BP Pulse Ox 11/03/22 13:55 76 13 141/75 H 100 11/03/22 13:45 83 12 147/78 H 100 11/03/22 13:36 36.0 C L 91 H 16 157/82 H 100 11/03/22 11:54 36.7 C 71 20 174/76 H 100 11/03/22 11:23 36.5 C 82 20 149/69 H 100 11/03/22 08:01 36.5 C 76 20 160/72 H 100 11/03/22 07:25 86 11/03/22 03:17 36.6 C 73 18 138/70 97 11/02/22 22:09 77 11/02/22 21:12 85 11/02/22 22:48 36.6 C 71 18 163/88 H 100 11/02/22 21:26 11/02/22 19:17 36.3 C L 72 18 158/92 H 100 11/02/22 15:20 36.5 C 72 18 140/82 93 O2 Del Method O2 Flow Rate 11/03/22 13:55 Room Air 11/03/22 13:45 Oxymask 4 11/03/22 13:36 Oxymask 9 11/03/22 11:54 Room Air 11/03/22 11:23 Room Air 11/03/22 08:01 Room Air 11/03/22 07:25 11/03/22 03:17 Room Air 11/02/22 22:09 11/02/22 21:12 11/02/22 22:48 Room Air 11/02/22 21:26 Room Air 11/02/22 19:17 Room Air 11/02/22 15:20 Room Air Pain Intensity Abdomen: Pain Intensity: 4 Transfer of Care Handoff Completed per policy Notes Mental Status: alert / awake / arousable Patient Amnestic to Procedure: Yes Nausea / Vomiting: adequately controlled Pain: adequately controlled Airway Patency, RR, SpO2: stable & adequate BP & HR: stable & adequate Hydration State: stable & adequate Anesthetic Complications: no major complications apparent and Pt Satisfied with anesthetic care
[2022-11-03] MEDS ORDERED: COUGH DROP (SUGAR FREE) LOZ 24 LOZ/1 BOX BUCCAL PRN (19:20)
[2022-11-04] MEDS: SODIUM CHLORIDE 0.9% 1000ML 1,000 ML IV SCH ×2 (00:54→04:53)
[2022-11-04] MEDS: metroNIDAZOLE 500 MG/100 ML BAG IV SCH ×2 (00:54→07:57)
[2022-11-04] MEDS ORDERED: Nursing to Pharmacy Communication SCH (01:45)
[2022-11-04] MEDS: CIPROFLOXACIN / D5W 400 MG/200 ML BAG IV SCH (02:11)
[2022-11-04 07:14] LABS: Albumin Globulin Ratio 1.4 (0.9-2); Albumin Level 3.7 gm/dl (3.4-5.0); BUN Creatinine Ratio 17.2 (10-20); Bilirubin,Total 0.7 mg/dl (0.2-1.0); Calcium 8.9 mg/dl (8.6-10.3); Creatinine Clr Calc Pharmacy 57.3 ml/min; Est GFR (African American) 44.1 ml/min; Est GFR (Non-African American) 38.1 ml/min; Globulin 2.7 gm/dl (2.5-4.0); Magnesium 1.7 mg/dl (1.7-2.4); Phosphorus 3.1 mg/dl (2.5-4.9); Potassium 4.2 mmol/L (3.5-5.1); Total Protein 6.4 gm/dl (6.0-8.3)
[2022-11-04 07:23] LABS: Hematocrit (blood only) 37.7 % (42.0-52.0); Hemoglobin 12.8 g/dl (14.0-18.0); Mean Corpuscular Hemoglobin 33.4 pg (25.0-34.0); Mean Corpuscular Volume 98.4 fL (80.0-100.0); Mean Platelet Volume 9.6 fL (9.4-12.4); Platelet Count 198 K/uL (130-400); RDW Coefficient of Variation 13.1 % (11.5-14.5); RDW Standard Deviation 46.7 fL (36.4-46.3); Red Blood Count 3.83 M/uL (4.70-6.10); White Blood Count 7.01 K/ul (4.8-10.8)
[2022-11-04] MEDS: INSULIN ASPART PER UNIT CHARGE SC SCH ×2 (07:47→11:32)
[2022-11-04] MEDS: ASPIRIN 81 MG ECTAB PO SCH (07:57)
[2022-11-04] MEDS: MULTIVITAMIN TAB PO SCH (07:57)
[2022-11-04] MEDS: ATORVASTATIN 40 MG TAB PO SCH (07:57)
--- NOTE | 2022-11-04 11:38 | Discharge Summary ---
Date of Service November 04, 2022 Admission HPI Per Admitting Provider A 57-year-old male with past medical history significant for type 2 diabetes, diabetic neuropathy, diabetic retinopathy, hypertension, history of gallstones, history of morbid obesity, chronic kidney disease stage III, history of anemia due to chronic kidney disease, history of COVID, presents with chest pain. The patient says the pain started in the lower chest, radiating to his left arm, severe in nature, it is constant pain. It started at 4:00 p.m. when he was riding in his car. After morphine in the ER, the pain is resolved. Denies any dizziness or shortness of breath or nausea associated with it. The patient says he had similar pain last Sunday night. The pain was more from the upper belly to throat region with lot of nausea and vomiting . It lasted until afternoon and then it got resolved, but this time as the pain radiated to left arm and left arm was also feeling numb, he got worried about his heart and came to the ER. He also has mild abdominal discomfort in his right abdomen. Denies any fever or chills. Has some dry cough going on for last 3 weeks. . He had a headache earlier that got resolved. No blurred visions, no earache, no runny nose, no sore throat, no difficulty swallowing. Normal bowel and bladder movements. Denies any blood in stools or black stools, no hematuria. Admission Exam Per Admitting Provider GENERAL: The patient is morbidly obese, not in acute distress. VITAL SIGNS: Temperature 36.6, pulse 91, respiratory rate 21, blood pressure 212/83, oxygen 98% on room air. HEENT: Pupils equal, round and reactive to light. Oral mucosa moist. NECK: No JVD, no neck masses. CARDIOVASCULAR: S1 and S2 heard. Regular rate and rhythm. No murmur, no gallop. RESPIRATORY SYSTEM: Normal AP diameter. No accessory muscle use. No wheezing or crackles. ABDOMEN: Soft, bowel sounds present. Mild right upper quadrant tenderness present. No guarding, no rigidity, no distention. CENTRAL NERVOUS SYSTEM: Cranial nerves II-XII grossly intact, nonfocal. EXTREMITIES: Lower extremity edema present with chronic skin changes. No erythema seen. Principal Diagnosis Choledocholithiasis Cholecystitis Discharge Exam GENERAL: morbidly obese M, not in acute distress. HEENT: NC/AT. Pupils equal, round and reactive to light. Oral mucosa moist. NECK: No JVD, no neck masses. CARDIOVASCULAR: S1 and S2 heard. Regular rate and rhythm. No murmur, no gallop. RESPIRATORY: Normal AP diameter. No accessory muscle use. No wheezing or crackles. ABDOMEN: Soft, bowel sounds present. minimal right upper quadrant tenderness to palpation (improved). No guarding, no rigidity, no distention. NEURO: awake, alert, oriented. Answering appropriately. Speech fluent, no facial asymmetry, moves extremities EXTREMITIES: Lower extremity edema present with chronic skin changes. No erythema seen. Moves extremities. Discharge Data Allergies Allergy/AdvReac Type Severity Reaction Status Date / Time Penicillins Allergy Severe ANAPHYLAXIS Verified 11/01/22 22:30 sulfamethoxazole AdvReac Mild GI upset Verified 11/01/22 22:30 [From Bactrim] trimethoprim [From Bactrim] AdvReac Mild GI upset Verified 11/01/22 22:30 Consultations 11/01/22 22:36 ED Decision to Admit Stat 11/02/22 06:57 Consult Gastroenterology Routine 11/02/22 08:00 Consult Cardiology Routine Consult General Surgery Routine Procedures Performed Operation Date: 11/03/22 11:30 Actual Procedures p Esophagogastroduodenoscopy - Shayan Balbuena MD p Endoscopic Ultrasonography Upper - Shayan Balbuena MD s Endoscopic Retrograde Cholangiopancreato with balloon sweeps. - Shayan Balbuena MD Ordered Studies 11/01/22 19:55 US gallbladder Stat FINDINGS: Gallbladder: Cholelithiasis and severe wall thickening at 9 mm, nonspecific, as the gallbladder is mild to moderately distended. Findings could reflect an acute cholecystitis in the appropriate clinical setting, though other entities including acute pancreatitis, hepatitis, CHF are also included in the differential. Common bile duct: CBD 4.7-6.6 mm, borderline prominent. Pancreas/Liver/Right kidney: Unremarkable as visualized. IMPRESSION: 1. Severe gallbladder wall thickening at 9 mm with cholelithiasis. 2. Findings could reflect acute cholecystitis in the appropriate clinical setting. 3. Borderline CBD dilatation 6.6 mm. 11/02/22 00:33 MR MRCP Urgent FINDINGS: Bile ducts: Borderline ductal dilation, CBD 7 mm. Distal most aspect of the CBD is not seen, with abrupt termination of the duct, nonspecific, may be within normal limits; cannot entirely rule out stricture or choledocholithiasis. Gallbladder: Cholelithiasis and diffuse gallbladder wall thickening, in keeping with ultrasound findings. Gallbladder is only mildly distended, an unusual finding an acute cholecystitis. Findings are nonspecific and could represent a combination of acute and chronic disease. Liver: No mass. Pancreas: No ductal dilation or peripancreatic edema. Spleen: Unremarkable. No splenomegaly. Adrenals: Unremarkable. No mass. Kidneys and ureters: No hydronephrosis. Stomach and bowel: Unremarkable. IMPRESSION: 1. Diffuse gallbladder wall thickening and cholelithiasis, stable. Gallbladder is not significantly distended and the findings are nonspecific, cannot rule out acute cholecystitis, possibly with a underlying chronic component. 2. Borderline CBD dilatation which abruptly terminates in the pancreatic head, nonspecific, may be within normal limits, though cannot rule out stricture or choledocholithiasis. 11/03/22 [place] ERCP biliary ductal Routine 11/03/22 07:07 US upper EUS PACS images Routine Hospital Course (1) Acute calculous cholecystitis: (2) Atypical chest pain: This is a 57-year-old male who presents with chest pain and possible cholecystitis. 1. Atypical Chest pain: Pain started in the lower side of chest, radiating to left arm. Risk factors of diabetes, obesity, hypertension. Initial workup was negative for acute coronary syndrome. Echo obtained LV is normal in size. Moderate concentric LVH. LV wall motion is normal. EF 60 to 65%. Diastolic dysfunction, grade 2. Aortic valve sclerosis mild, without significant aortic valvular stenosis. Cardiology also consulted. Findings do not reflect acute coronary syndrome/myocardial ischemia Agree with GI and surgical evaluation Held lisinopril and metformin while inpt 2. Acute cholecystitis, transaminitis: Pt had a similar episode with nausea, vomiting on last Sunday night. Gallbladder ultrasound is with gallstones, likely cholecystitis. ER talked to surgery and recommended MRCP. MRCP. 1. Diffuse gallbladder wall thickening and cholelithiasis, stable. Gallbladder is not significantly distended and the findings are nonspecific, cannot rule out acute cholecystitis, possibly with a underlying chronic component. 2. Borderline CBD dilatation which abruptly terminates in the pancreatic head, nonspecific, may be within normal limits, though cannot rule out stricture or choledocholithiasis. Empiric Cipro and Flagyl, IV fluids, IV antiemetics. Closely monitor in the hospital. GI and surgery consulted Surgery -discussed with surgeon, Dr. Wilson, no surgery planned at this time - cont. Abx for 2 weeks -> cholecystectomy as outpt GI - pt now s/p EUS/ERCP Choledocholithiasis was found. Complete removal was accomplished by biliary sphincterectomy and balloon extraction. Follow-up with surgery for cholecystectomy. 3. Diabetes: The patient is currently on metformin 250 mg p.o. daily, which was held while inpt.Insulin sliding scale. Follow the blood sugars, His HbA1c level recently was 5.5. Current A1c 5.7%. 4. Chronic kidney disease stage III: Presently with creatinine of 2.5, seems to be at baseline. Baseline creatinine 1.8-2.9. Follows with nephrology. Repeat Cr improved. 5. History of hypertension: Hold home lisinopril for now. Placed on IV labetalol p.r.n. Monitor the blood pressure. 6. Hyperlipidemia: Will continue statin for now. 7. Morbid obesity: Needs counseling. The patient says he has a scheduled sleep study coming January. 8. Lower extremity edema: On Lasix, which we will hold for now. Monitor for any volume overload. 9. History of alcoholism: The patient drinks total 12 beers on two days a week. Last drink was last Sunday. Advised on cutting down alcohol. DVT prophylaxis: SCDs for now. DISPOSITION:med tele Total Time Total Time Spent Total Time Spent (In Minutes): 40 Discharge Plan Discharge Items Patient Disposition: Home - Self-Care Reason For Visit: CHEST PAIN, ABDOMINAL PAIN Discharge Diagnosis: Choledocholithiasis Cholecystitis Activity: Per Instructions section Non-emergency contact: Primary Care Provider, Surgeon and Global President Call non-emergency contact if: you have any medication questions and your symptoms worsen Follow-up/Referrals: Raul Dejesus MD [Primary Care Provider] - Diet: Low Fiber and Low Fat Addtl Attending Provider Instructions: Follow-up with primary care physician, and surgeon. Continue antibiotics, ciprofloxacin, and metronidazole for next 2 weeks, as prescribed. Recommend taking probiotics, while on antibiotic. For pain, you can take Tylenol 1000 mg, 3 times a day. For more severe pain, you can take oxycodone, as needed as prescribed. Follow-up with general surgery for cholecystectomy/gallbladder surgery. Pending Studies at Discharge: No Stand-Alone Forms: [facility], Smoking Cessation Medications and DC Order Prescriptions: New ciprofloxacin HCl 500 mg tablet 500 mg PO BID 14 Days Qty: 28 0RF metronidazole 500 mg tablet 500 mg PO Q8H 14 Days Qty: 42 0RF Probiotic 3 billion cell capsule 3,000 mmu cells PO DAILY Qty: 14 0RF Rx Instructions: administer with a meal oxycodone 5 mg tablet 5 mg PO Q12H PRN (Reason: pain) Qty: 5 0RF Continued aspirin [Adult Low Dose Aspirin] 81 mg tablet,delayed release (DR/EC) 81 mg PO DAILY atorvastatin 40 mg tablet 40 mg PO DAILY furosemide 20 mg tablet 20 mg PO DAILY lisinopril 20 mg tablet 20 mg PO DAILY multivitamin Tablet 1 tab PO DAILY metformin 500 mg tablet 250 mg PO DAILY Discharge Orders: Discharge Order (Routine); Ordered 11/04/22 Ordered By: Haresh Soto Admission Data Admit Date/Time: 11/02/22 13:01 Attending Provider: Haresh Soto Admit Provider: Nadeem Jordan Primary Care Provider: Raul Dejesus Other Providers: Nadeem Jordan ; Capo Toth ; Magda Scott ; Ralf Guerra ; Daquan Coronado ; Musa Mccall ; Vishnu Figueroa ; Hemant Louise ; Muriel Walter ; Martita Palma ; Magda Tong ; Corby Aleman ; Kwame Erickson ; Jaren Wilson ; Hemant Traore ; Elizabeth Brody ; Janessa Martinez ; Alirio Russo ; Vishnu Monson ; Chary Huddleston ; Patrica Masters ; Stef Maynard Jr ; Ana Fleming ; Geo Hudson ; Ofe Cantrell Other Interventions: Discharge Summary Assessment (RN) Last Done: 11/04/22 11:23
== END 2022-11-04 12:18 | disposition home or self-care (01) | DRG 446 ==
LOC: ED 18:23 → 2S 18:23 → 2W 11-02 21:17